=== PATIENT | female | born 1945 | race Caucasian/White ===

== ENCOUNTER 2017-04-11 06:57 | Day surgery (SDC) | payer MEDICARE ==
[2017-04-05 15:15] VITALS: BMI 47.2
[~2017-04-11 06:57] MED LIST: ALPRAZolam 0.25 MG TAB PO PRN; ALPRAZolam 0.5 MG TAB PO PRN; ASPIRIN 325 MG TAB PO STA; ATORVASTATIN 80 MG TAB PO STA; NITROGLYCERIN SL TABS 0.4 MG TAB SUBLINGUAL PRN; SODIUM CHLORIDE 0.9% 1,000 ML in EMPTY BAG 1 BAG IV ONE
[2017-04-11 07:49] LABS: Basophils % (A) 0 %; CH 29.6; CHCM 33.6; Eosinophils # (A) 0.1 k/uL (0-0.7); Eosinophils % (A) 1 %; HGB 12.4 gm/dL (11.4-16.0); Luc # (Auto) 0.21; Luc % (Auto) 2; Lymphocytes # (A) 2.9 k/uL (1.0-4.8); Lymphocytes % (A) 28 %; MCH 29.8 pg (25.0-35.0); MCHC 33.6 g/dL (31.0-37.0); MCV 88.6 fL (80.0-100.0); Mean Platelet Volume 8.3; Monocytes # (A) 0.6 k/uL (0-1.0); Monocytes % (A) 6 %; Neutrophils # (A) 6.8 k/uL (1.3-7.7); Neutrophils % (A) 63 %; RBC 4.18 m/uL (3.80-5.40); RDW 13.9 % (11.5-15.5); WBC 10.7 k/uL (3.8-10.6); WBC (Perox) 10.98
[2017-04-11 07:58] LABS: Anion Gap 9 mmol/L; Blood Urea Nitrogen 17 mg/dL (7-17); Calcium 9.3 mg/dL (8.4-10.2); Carbon Dioxide 26 mmol/L (22-30); Chloride 105 mmol/L (98-107); Glucose 151 mg/dL (74-99); Non-African American GFR(MDRD) >60 (>60 ml/min/1.73 sqM); Potassium 4.5 mmol/L (3.5-5.1); Sodium 140 mmol/L (137-145)
[2017-04-11] MEDS ORDERED: LIDOCAINE 2% INJ 20 MG/ML (20 ML MDV) ONE ×2 (09:02→09:46)
[2017-04-11] MEDS ORDERED: MIDAZOLAM 2 MG/2 ML VIAL ONE (09:02)
[2017-04-11] MEDS: MIDAZOLAM 2 MG/2 ML VIAL IVP ONE ×2 (09:34→09:39)
[2017-04-11] MEDS ORDERED: LIDOCAINE 2% INJ 20 MG/ML SQ ONE ×2 (09:38→09:48)
[2017-04-11] MEDS ORDERED: fentaNYL (PF) 50 MCG/ML 2 ML AMP ONE (09:41)
[2017-04-11] MEDS ORDERED: fentaNYL (PF) 50 MCG/ML 2 ML AMP IV ONE (09:42)
[2017-04-11] MEDS ORDERED: NITROGLYCERIN OINT 1 INCH/GM PACKET TOPICAL ONE ×2 (10:02→10:04)
[2017-04-11] MEDS ORDERED: HYDROmorphone 2 MG/ML 1 ML SYRINGE ONE (10:03)
[2017-04-11] MEDS ORDERED: HYDROmorphone 2 MG/ML 1 ML SYRINGE IVP ONE (10:04)
[2017-04-11] MEDS ORDERED: ENALAPRILAT 1.25 MG/ML 1 ML VIAL ONE (10:06)
[2017-04-11] MEDS ORDERED: ENALAPRILAT 1.25 MG/ML 1 ML VIAL IVP ONE (10:06)
[2017-04-11] MEDS ORDERED: RX INFO: IV CONTRAST WAS GIVEN 1 EACH MISC MISCELLANE PRN (10:08)
[2017-04-11] MEDS ORDERED: hydrALAZINE HCL 20 MG/ML 1 ML VIAL ONE (10:12)
[2017-04-11] MEDS: hydrALAZINE HCL 20 MG/ML 1 ML VIAL IVP ONE ×2 (10:13→10:25)
--- NOTE | 2017-04-11 10:46 | CC ---
DATE OF SERVICE: INDICATION: Unstable angina. After obtaining informed consent, we attempted cardiac catheterization via the right femoral artery initially. We could not obtain a vascular access. We tried a few times on the left side. Again we could not obtain a vascular access. I went on to get vascular access on the right side using modified Seldinger technique, however, after placing the sheath into the femoral artery and obtaining good flow, we were not able to advance even the Glidewire across the ( ). Due to this, I stopped the procedure, removed the femoral sheath and patient had been stable throughout. Just had a small hematoma over the right groin. Blood pressures have been normal. Distal pulses have been normal. The plan at this stage is to do a manual hemostasis and bring her back tomorrow and at that time do a radial cath on her.
[2017-04-11] MEDS: SODIUM CHLORIDE 0.9% 1,000 ML IV SCH (11:45)
[2017-04-11] MEDS ORDERED: NITROGLYCERIN SL TABS 0.4 MG TAB SUBLINGUAL PRN (12:14)
[2017-04-11] MEDS ORDERED: ACETAMINOPHEN TAB 325 MG TAB PO PRN (12:16)
[2017-04-11] MEDS ORDERED: SODIUM CHLORIDE 0.9% 1,000 ML in EMPTY BAG 1 BAG IV ONE (17:05)
[2017-04-11] MEDS ORDERED: ASPIRIN 325 MG TAB PO STA (17:05)
[2017-04-11] MEDS ORDERED: ATORVASTATIN 80 MG TAB PO STA (17:05)
[2017-04-11] MEDS ORDERED: ATENOLOL 25 MG TAB PO SCH (21:00)
[2017-04-12] MEDS: LOSARTAN 50 MG TAB PO SCH (08:42)
[2017-04-12] MEDS: ISOSORBIDE MONONITRATE ER 30 MG TAB.ER.24H PO SCH (08:42)
[2017-04-12] MEDS: PANTOPRAZOLE 40 MG TABLET PO SCH (08:42)
[2017-04-12] MEDS: LORATADINE 10 MG TAB PO SCH (08:43)
[2017-04-12] MEDS: amLODIPine 2.5 MG TAB PO SCH (08:43)
[2017-04-12] MEDS: ASPIRIN 81 MG CHEW PO SCH (08:43)
[2017-04-12] MEDS: SODIUM CHLORIDE 0.9% 1,000 ML IV SCH ×3 (12:00→19:11)
[2017-04-12] MEDS ORDERED: diphenhydrAMINE 50 MG/ML 1 ML VIAL IVP ONE (12:28)
[2017-04-12] MEDS ORDERED: MIDAZOLAM 2 MG/2 ML VIAL IV ONE (12:28)
[2017-04-12] MEDS ORDERED: LIDOCAINE 2% INJ 20 MG/ML SQ ONE (12:29)
[2017-04-12] MEDS: VERAPAMIL SYRINGE (5 MG/10 ML) INTRAARTER ONE ×2 (12:30→12:38)
[2017-04-12] MEDS ORDERED: MEPERIDINE 50 MG/ML SYRINGE IVP ONE (12:39)
[2017-04-12] MEDS ORDERED: HYDROmorphone 2 MG/ML 1 ML SYRINGE IV ONE (12:58)
[2017-04-12] MEDS ORDERED: BIVALIRUDIN BOLUS 250 MG/50 ML IV ONE (13:30)
[2017-04-12] MEDS ORDERED: BIVALIRUDIN 250 MG in SODIUM CHLORIDE 0.9% 50 ML IV ONE (13:31)
[2017-04-12] MEDS ORDERED: NITROGLYCERIN 1000MCG/10ML SYRINGE INTRACORON ONE (13:43)
[2017-04-12] MEDS ORDERED: IOHEXOL 350 MG/ML 125ML BOTTLE INJ ONE (13:44)
[2017-04-12] MEDS ORDERED: CLOPIDOGREL 75 MG TAB PO ONE (14:07)
[2017-04-12] MEDS ORDERED: RX INFO: IV CONTRAST WAS GIVEN 1 EACH MISC MISCELLANE PRN (14:11)
[2017-04-12] MEDS ORDERED: ATROPINE SULFATE 0.1 MG/ML 10ML SYRINGE IV PRN (14:11)
[2017-04-12] MEDS ORDERED: MAG HYDROX/AL HYDROX/SIMETH 30 ML CUP PO PRN (14:11)
[2017-04-12] MEDS ORDERED: ATORVASTATIN 80 MG TAB PO SCH (21:00)
[2017-04-12] MEDS ORDERED: ATENOLOL 25 MG TAB PO SCH (21:15)
[2017-04-13] MEDS: SODIUM CHLORIDE 0.9% 1,000 ML IV SCH ×2 (03:54)
[2017-04-13 06:50] LABS: Anion Gap 7 mmol/L; Blood Urea Nitrogen 17 mg/dL (7-17); Calcium 8.8 mg/dL (8.4-10.2); Carbon Dioxide 23 mmol/L (22-30); Chloride 108 mmol/L (98-107); Glucose 194 mg/dL (74-99); Non-African American GFR(MDRD) >60 (>60 ml/min/1.73 sqM); Potassium 3.9 mmol/L (3.5-5.1); Sodium 138 mmol/L (137-145)
[2017-04-13] MEDS: PANTOPRAZOLE 40 MG TABLET PO SCH (06:57)
[2017-04-13 07:59] LABS: Basophils # (A) 0.1 k/uL (0-0.2); Basophils % (A) 0 %; CH 29.6; CHCM 32.9; Eosinophils # (A) 0.1 k/uL (0-0.7); Eosinophils % (A) 1 %; HDW 2.66; HGB 10.9 gm/dL (11.4-16.0); Luc # (Auto) 0.12; Luc % (Auto) 1; Lymphocytes % (A) 18 %; MCH 29.8 pg (25.0-35.0); MCHC 32.9 g/dL (31.0-37.0); MCV 90.5 fL (80.0-100.0); Mean Platelet Volume 8.7; Monocytes # (A) 0.7 k/uL (0-1.0); Monocytes % (A) 6 %; Neutrophils # (A) 8.4 k/uL (1.3-7.7); Neutrophils % (A) 74 %; RBC 3.65 m/uL (3.80-5.40); RDW 14.1 % (11.5-15.5); WBC 11.4 k/uL (3.8-10.6); WBC (Perox) 10.46
[2017-04-13 08:53] VITALS: BP 139/74; PULSE 98; RESP 14; TEMP 97
[2017-04-13] MEDS: LOSARTAN 50 MG TAB PO SCH (08:54)
[2017-04-13] MEDS: amLODIPine 2.5 MG TAB PO SCH (08:54)
[2017-04-13] MEDS: ISOSORBIDE MONONITRATE ER 30 MG TAB.ER.24H PO SCH (08:54)
[2017-04-13] MEDS: LORATADINE 10 MG TAB PO SCH (08:54)
[2017-04-13] MEDS: ASPIRIN 81 MG CHEW PO SCH (08:54)
[2017-04-13] MEDS ORDERED: CLOPIDOGREL 75 MG TAB PO SCH (09:00)
--- NOTE | 2017-04-13 09:15 | DS ---
DATE OF ADMISSION: 04/11/2017 DATE OF DISCHARGE: 04/13/2017 FINAL DIAGNOSES: Unstable angina. PROCEDURES PERFORMED: 1. Left heart catheterization. 2. Angioplasty of [place] circumflex coronary artery. HOSPITAL COURSE: This is a 71-year-old lady with history of coronary artery disease, status post prior angioplasty, hypertension and dyslipidemia who presented to me with new onset progressively worsening shortness of breath. I brought her in on the 11 of April to perform cardiac catheterization. We were unable to obtain vascular access. After multiple attempts, we thought we will do a radial cath and patient was taken down for radial cath by Dr. Drea Chappell, but we could not get radial access on her. Hence, she completed a femoral angiogram and underwent angioplasty with stent placement of [place] circumflex coronary artery. She has done well since the angioplasty and is free of symptoms. At the time of my evaluation, she is comfortable at rest. Vital signs are stable. There is no jugular venous distention. Chest exam reveals good air entry bilaterally. Heart exam reveals first and second heart sounds. No gallop. No murmur, no rub. Abdomen is soft, nontender. Exam of extremities did not reveal any edema. The right groin shows mild ecchymosis. Left groin is normal. Foot pulses are intact. Discharge medications include: 1. Cozaar 50 mg q. daily. 2. Loratadine 10 q. daily. 3. Amlodipine 2.5 q. daily. 4. Prilosec 20 q. daily. 5. Sublingual nitroglycerin p.r.n. basis. 6. Imdur 30 q. daily. 7. Tenormin 25 q. daily. 8. Plavix 75 mg q. daily. 9. Lipitor 80 q. daily. Patient is allergic to LISINOPRIL. FOLLOWUP: Patient will be followed up in my office in a week's time. EKG today shows sinus rhythm without acute ST-T wave changes. Labs show a hemoglobin of 10.9. The initial hemoglobin on presentation was 12.4. Will follow the hemoglobin as outpatient. Creatinine is 0.7. Potassium is 3.9.
--- NOTE | 2017-04-13 10:28 | CC ---
DATE OF SERVICE: 04/12/2017 PROCEDURE: Left heart catheterization and coronary angiography. Performed by Dr. Drea Chappell. CLINICAL INFORMATION: Mrs. Ann Montana is a morbidly obese 71-year-old lady with a history of previous LAD stenting performed by me in 2013. Apparently, she came in with symptoms of unstable angina and Dr. Crespo attempted cardiac cath from the femoral approach bilaterally, but was unsuccessful because of tortuosity and difficulty to advance the guidewire. She was therefore advised to a radial cardiac cath. PROCEDURE NOTE: Under local anesthesia and strict aseptic precautions, a 6 Latvian introducer was placed in the right radial artery. I had a lot of difficulty advancing the catheter and wire beyond the upper arm area mainly because of extreme tortuosity of the radial artery as it came off from the brachial. I therefore abandoned the procedure and again attempted from the right femoral approach. I was able to place a 6 Latvian introducer after considerable effort and difficulty. There was a lot of tortuosity as well. Finally, a 6 Latvian introducer with a regular guidewire was placed after multiple attempts. Using a standard JL4 catheter, I performed selective coronary angiography of the right coronary artery. I had a lot of difficulty getting selective injection of the LAD since LAD and circumflex came off with a very short left main. However, I noted that the LAD had no more than 40% to 50% lesion in the midportion where previous stenting was performed, but there was a new lesion in the circumflex distally and therefore I went ahead with intervention of this vessel. LV pressures were obtained but LV gram was not performed. CARDIAC CATHETERIZATION FINDINGS: The left ventricular end diastolic pressure was about 20 mmHg and there was no gradient across the aortic valve. CORONARY ANGIOGRAPHY FINDINGS: RIGHT CORONARY ARTERY: Small nondominant, has diffuse disease with multiple areas of narrowing unchanged from the previous study from 2013. LEFT MAIN CORONARY ARTERY: This is a very short vessel, almost there are 2 separate origins for the LAD and circumflex but left main that is visualized, which is very small, does not seem to have any significant disease. LEFT ANTERIOR DESCENDING CORONARY ARTERY: This vessel was stented in the midportion. There is about a 40% to 45% narrowing with a brisk flow, mild diffuse disease is seen throughout. LEFT POSTERIOR CIRCUMFLEX CORONARY ARTERY: A very dominant vessel, gives off 2 obtuse marginal branches and distally before it bifurcates there is about an 80% stenosis noted eccentric in nature and this may be the culprit lesion. FINAL IMPRESSION: This patient has a patent LAD with a 45% mid lesion stenosis within the previously stented segment. Right coronary artery is nondominant, small diffusely diseased. Circumflex is a new stenosis of about 80% to 85% in the midportion before bifurcation, which I believe is the culprit lesion. RECOMMENDATION: I am recommending intervention of the circumflex vessel and went on to perform the procedure in the same setting.
--- NOTE | 2017-04-13 10:32 | PTCA ---
DATE OF SERVICE: 04/12/2017 PROCEDURE: PTCA and stenting of mid circumflex coronary artery. Performed by Dr. Drea Chappell. PROCEDURE NOTE: I used a 6 Hebrew JL4 guide catheter to cannulate the left coronary artery. I was able to get decent pictures of the LAD as well. Using a Whisper wire, I crossed the lesion circumflex and kept it in one of the branches. Using a 2.5 caliber, 12 mm Euphora balloon I predilated the lesion. I then deployed a 3.0 caliber, 12 mm long Xience stent. This was deployed at 13 atmospheres. Excellent angiographic result was achieved. Patient received Angiomax bolus and infusion. She also received 600 mg of Plavix. Excellent angiographic result without complication was achieved. I then used an Angio-Seal to secure hemostasis, but this was unsuccessful. Patient continued to ooze, therefore manual pressure was obtained with good hemostasis and FemoStop was applied and she was sent to the room in a stable condition with a decent distal pulse. The TR band was then applied to the right radial as per protocol with good hemostasis and good saturation in the fingers of the right hand was noted. Excellent angiographic result of circumflex was achieved. Results were discussed with the patient and family. Moderate conscious sedation was used for about one hour, 15 minutes for this patient using a combination of Versed, Benadryl and also Demerol. Patient's oxygen saturation was monitored closely. Excellent angiographic result without complication was achieved and I expect the patient was discharged in next 24 to 48 hours.
== END 2017-04-13 11:40 | disposition home or self-care (01) ==
LOC: CATHCVL 06:57 → 3OBS 10:18 → 6SEL 04-12 16:34 → CATHCVL 04-13 11:40
PROVIDERS: ATTEND Internal Medicine Cardiovascular Disease
DX: I25.110 Atherosclerotic heart disease of native coronary artery with unstable angina pectoris (principal); E78.2 Mixed hyperlipidemia; I10 Essential (primary) hypertension; E66.01 Morbid (severe) obesity due to excess calories; Z68.42 Body mass index [BMI] 45.0-49.9, adult; Z79.82 Long term (current) use of aspirin; Z79.899 Other long term (current) drug therapy; Z88.8 Allergy status to other drugs, medicaments and biological substances; Z95.5 Presence of coronary angioplasty implant and graft
CPT/HCPCS: 99152; 99153 ×5; 93458; 80048 ×2; 85025 ×2; C1769 ×5; C9600; C1760; C1887; C1894 ×2; C1725; C1874; J2001 ×2; J2250 ×2; J1170 ×2; J0360; J1200; J2175; J3010; J0583; J1644; Q9967

== ENCOUNTER → 2017-05-02 | Outpatient (CLI) | payer MEDICARE ==
--- NOTE | 2017-05-02 10:02 | MM ---
Reason for exam: follow-up at short interval from prior study. Last mammogram was performed 6 months ago. History: Patient is postmenopausal and history of other cancer. Physical Findings: Nurse Summary: 1 x 1cm nodule in the left breast at 12 o'clock and a 2 x 2cm nodule in the left breast at 9 o'clock (nurse ts). MG 3D Diag Mammo W/Cad LT CC, MLO, ML, CC with magnification, and ML with magnification view(s) were taken of the left breast. Prior study comparison: October 30, 2016, bilateral MG 3d screening mammo w/cad. October 29, 2015, bilateral MG screening mammo w CAD. There are scattered fibroglandular densities. Finding: There are stable round, grouped/clustered calcifications in the 2 o'clock upper outer quadrant, middle position of the left breast 8cm from the nipple. These results were verbally communicated with the patient and result sheet given to the patient on 05/02/17. ASSESSMENT: Benign, BI-RAD 2 RECOMMENDATION: Follow-up diagnostic mammogram of both breasts in 6 months.
--- NOTE | 2017-05-02 10:06 | USB ---
Reason for exam: follow-up at short interval from prior study. History: Patient is postmenopausal and history of other cancer. US Breast Limited LT Left breast ultrasound demonstrates a 2.2 x 0.8 x 2.4cm solid, isoechoigenic, lipoma at 12 o'clock. These results were verbally communicated with the patient and result sheet given to the patient on 05/02/17. ASSESSMENT: Benign, BI-RAD 2 RECOMMENDATION: Follow-up diagnostic mammogram of both breasts in 6 months.
== END | disposition home or self-care (01) ==
LOC: RADMAMWWP 08:34
PROVIDERS: ATTEND Family Medicine
DX: R92.8 Other abnormal and inconclusive findings on diagnostic imaging of breast (principal)
CPT/HCPCS: 76642; G0206; G0279

== ENCOUNTER 2017-05-12 18:24 | Emergency (ER) | payer MEDICARE ==
[2017-05-12] MEDS ORDERED: MORPHINE SULFATE 4 MG/ML SYRINGE IVP STA (19:02)
[2017-05-12 19:37] LABS: Basophils % (A) 0 %; CH 29.2; CHCM 34.3; Eosinophils # (A) 0.2 k/uL (0-0.7); Eosinophils % (A) 1 %; HCT 38.3 % (34.0-46.0); HGB 13.2 gm/dL (11.4-16.0); Luc # (Auto) 0.18; Luc % (Auto) 2; Lymphocytes # (A) 3.2 k/uL (1.0-4.8); Lymphocytes % (A) 28 %; MCH 29.5 pg (25.0-35.0); MCHC 34.5 g/dL (31.0-37.0); Monocytes # (A) 0.7 k/uL (0-1.0); Monocytes % (A) 6 %; Neutrophils # (A) 7.1 k/uL (1.3-7.7); Neutrophils % (A) 62 %; RBC 4.48 m/uL (3.80-5.40); RDW 13.6 % (11.5-15.5); WBC 11.5 k/uL (3.8-10.6); WBC (Perox) 11.06
[2017-05-12 19:38] VITALS: RESP 20
[2017-05-12 19:38] LABS: Appearance,Urine Clear (Clear); Bilirubin,Urine Negative (Negative); Glucose,Urine (UA) Negative (Negative); Ketones,Urine Negative (Negative); Leukocyte Esterase,Urine Negative (Negative); Nitrite,Urine Negative (Negative); PH, Urine 6.5 (5.0-8.0); Protein,Urine Negative (Negative); Specific Gravity,Urine 1.003 (1.001-1.035); UA Billing (MACRO vs. MICRO) CHEM; Urobilinogen,Urine <2.0 mg/dL (<2.0)
[2017-05-12 19:43] LABS: MCV 85.4 fL (80.0-100.0)
[2017-05-12 19:49] LABS: Anion Gap 13 mmol/L; Blood Urea Nitrogen 18 mg/dL (7-17); Calcium 9.5 mg/dL (8.4-10.2); Carbon Dioxide 23 mmol/L (22-30); Chloride 104 mmol/L (98-107); Glucose 127 mg/dL (74-99); Non-African American GFR(MDRD) >60 (>60 ml/min/1.73 sqM); Potassium 4.3 mmol/L (3.5-5.1); Sodium 140 mmol/L (137-145)
[2017-05-12 19:52] LABS: INR 0.9 (<1.1); Partial Thromboplastin Time 24.6 sec (22.0-30.0); Prothrombin Time 9.7 sec (9.0-12.0)
--- NOTE | 2017-05-12 20:29 | ED ---
General Adult HPI - General Chief complaint: Abdominal Pain Stated complaint: severe left side pain Time Seen by Provider: 05/12/17 18:49 Source: patient, RN notes reviewed Mode of arrival: wheelchair Limitations: no limitations - History of Present Illness Initial comments: 72-year-old female with past medical history of hypertension, hyperlipidemia, and COPD presents with left flank pain. This began gradually over the last 6 hours. She denies any trauma. Denies any twisting or pulling injury. Denies dysuria, denies fever or chills. Denies abdominal pain. Denies nausea vomiting or diarrhea. States her last bowel movement was today was normal. States the pain is coming and going and crampy in nature. Pain does not radiate. He denies chest pain or shortness of breath. Denies fever or chills. Patient denies any bowel or bladder incontinence. Denies any paresthesias. Denies any shooting pain to the lower extremities. - Related Data Home Medications Medication Instructions Recorded Confirmed amLODIPine [Norvasc] 2.5 mg PO DAILY 06/16/14 05/12/17 Omeprazole [PriLOSEC] 20 mg PO DAILY PRN 03/05/16 05/12/17 Isosorbide Mononitrate [Isosorbide 30 mg PO DAILY 04/05/17 05/12/17 Mononitrate ER] Loratadine 10 mg PO DAILY 04/11/17 05/12/17 Losartan [Cozaar] 50 mg PO DAILY 04/11/17 05/12/17 Previous Rx's Medication Instructions Recorded Aspirin EC [Ecotrin Low Dose] 81 mg PO DAILY #30 tablet. 06/18/14 Atenolol [Tenormin] 25 mg PO HS #30 tab 06/18/14 Nitroglycerin Sl Tabs [Nitrostat] 0.4 mg SUBLINGUAL Q5M PRN #30 tab 06/18/14 Clopidogrel [Plavix] 75 mg PO DAILY #90 tab 04/13/17 HYDROcodone/APAP 5-325MG [[place] 1 tab PO Q6HR PRN #12 tab 05/12/17 5-325] Allergies Allergy/AdvReac Type Severity Reaction Status Date / Time adhesive Allergy BLISTERS,PAPER Verified 05/12/17 19:16 TAPE OK diclofenac [From [place]] Allergy Dyspnea Verified 05/12/17 19:16 lisinopril Allergy Cough Verified 05/12/17 19:16 Review of Systems ROS Statement: Those systems with pertinent positive or pertinent negative responses have been documented in the HPI. ROS Other: All systems not noted in ROS Statement are negative. Constitutional: Denies: fever, chills Cardiovascular: Denies: chest pain Gastrointestinal: Denies: nausea, vomiting Genitourinary: Denies: urgency, dysuria, frequency Musculoskeletal: Reports: back pain Past Medical History Past Medical History: Coronary Artery Disease (CAD), GERD/Reflux, Hyperlipidemia , Hypertension, Osteoarthritis (OA) Additional Past Medical History / Comment(s): HIATAL HERNIA, History of Any Multi-Drug Resistant Organisms: None Reported Past Surgical History: Adenoidectomy, Appendectomy, Back Surgery, Heart Catheterization With Stent, Joint Replacement, Tonsillectomy, Tubal Ligation, Uterine Ablation Additional Past Surgical History / Comment(s): FUSION, JAYASHREE KNEE REPLACEMENTS, JAYASHREE CATARACTS, RT HIP REPLACEMENT, STENT X3 Past Anesthesia/Blood Transfusion Reactions: No Reported Reaction Date of Last Stent Placement:: 06/2014 Past Psychological History: No Psychological Hx Reported Smoking Status: Never smoker Past Alcohol Use History: None Reported Past Drug Use History: None Reported - Past Family History Sister(s) Family Medical History: Cancer Brother(s) Family Medical History: Cancer, Pulmonary Embolus General Exam Limitations: no limitations General appearance: alert, in no apparent distress Head exam: Present: atraumatic, normocephalic Eye exam: Present: normal appearance, PERRL ENT exam: Present: normal exam Neck exam: Present: normal inspection, full ROM. Absent: tenderness Respiratory exam: Present: normal lung sounds bilaterally. Absent: respiratory distress Cardiovascular Exam: Present: regular rate, normal rhythm GI/Abdominal exam: Present: soft. Absent: distended, tenderness Extremities exam: Present: full ROM. Absent: tenderness, pedal edema Back exam: Present: normal inspection, tenderness, CVA tenderness (L), other ( Tenderness to palpation in the left CVA, well-healed lumbar spinal surgery scar. ) Neurological exam: Present: alert, oriented X3, CN II-XII intact, normal gait, reflexes normal. Absent: motor sensory deficit Psychiatric exam: Present: normal affect, normal mood Course Vital Signs 05/12/17 05/12/17 18:28 19:38 Temperature 97.4 F L Pulse Rate 84 83 Respiratory 16 20 Rate Blood Pressure 149/70 150/63 O2 Sat by Pulse 95 96 Oximetry - Reevaluation(s) Reevaluation #1: 05/12/17 20:52 Patient reevaluated at 2030. She is feeling somewhat better. Medical Decision Making - Medical Decision Making 72-year-old female presenting with left flank pain which is nonradiating. Denies any associated symptoms. Denies any trauma or injury to this region. On examination there is tenderness in the left CVA region as well as lumbar paraspinal muscles. Exam is otherwise unremarkable. Laboratory studies are obtained including urinalysis which shows no signs of hemorrhage or infection. CBC and BMP are unremarkable. CT of the abdomen and pelvis is negative for any acute findings, no kidney stone, no signs of infection or inflammation, no acute bony abnormalities. Evaluation patient is feeling much better. Patient will be given pain medication and is encouraged to follow up with primary care physician in the next several days. Patient is agreeable with this plan. - Lab Data Result diagrams: 05/12/17 19:28 05/12/17 19:28 Lab Results 05/12/17 05/12/17 05/12/17 Range/Units 19:28 19:28 19:28 WBC 11.5 H (3.8-10.6) k/uL RBC 4.48 (3.80-5.40) m/uL Hgb 13.2 (11.4-16.0) gm/dL Hct 38.3 (34.0-46.0) % MCV 85.4 D (80.0-100.0) fL MCH 29.5 (25.0-35.0) pg MCHC 34.5 (31.0-37.0) g/dL RDW 13.6 (11.5-15.5) % Plt Count 240 (150-450) k/uL Neutrophils % 62 % Lymphocytes % 28 % Monocytes % 6 % Eosinophils % 1 % Basophils % 0 % Neutrophils # 7.1 (1.3-7.7) k/uL Lymphocytes # 3.2 (1.0-4.8) k/uL Monocytes # 0.7 (0-1.0) k/uL Eosinophils # 0.2 (0-0.7) k/uL Basophils # 0.0 (0-0.2) k/uL PT (9.0-12.0) sec INR (<1.1) APTT (22.0-30.0) sec Sodium 140 (137-145) mmol/L Potassium 4.3 (3.5-5.1) mmol/L Chloride 104 (98-107) mmol/L Carbon Dioxide 23 (22-30) mmol/L Anion Gap 13 mmol/L BUN 18 H (7-17) mg/dL Creatinine 0.80 (0.52-1.04) mg/dL Est GFR (MDRD) Af Amer >60 (>60 ml/min/1.73 sqM) Est GFR (MDRD) Non-Af >60 (>60 ml/min/1.73 sqM) Glucose 127 H (74-99) mg/dL Calcium 9.5 (8.4-10.2) mg/dL Urine Color Colorless Urine Appearance Clear (Clear) Urine pH 6.5 (5.0-8.0) Ur Specific Sparkman 1.003 (1.001-1.035) Urine Protein Negative (Negative) Urine Glucose (UA) Negative (Negative) Urine Ketones Negative (Negative) Urine Blood Negative (Negative) Urine Nitrite Negative (Negative) Urine Bilirubin Negative (Negative) Urine Urobilinogen <2.0 (<2.0) mg/dL Ur Leukocyte Esterase Negative (Negative) 05/12/17 Range/Units 19:28 WBC (3.8-10.6) k/uL RBC (3.80-5.40) m/uL Hgb (11.4-16.0) gm/dL Hct (34.0-46.0) % MCV (80.0-100.0) fL MCH (25.0-35.0) pg MCHC (31.0-37.0) g/dL RDW (11.5-15.5) % Plt Count (150-450) k/uL Neutrophils % % Lymphocytes % % Monocytes % % Eosinophils % % Basophils % % Neutrophils # (1.3-7.7) k/uL Lymphocytes # (1.0-4.8) k/uL Monocytes # (0-1.0) k/uL Eosinophils # (0-0.7) k/uL Basophils # (0-0.2) k/uL PT 9.7 (9.0-12.0) sec INR 0.9 (<1.1) APTT 24.6 (22.0-30.0) sec Sodium (137-145) mmol/L Potassium (3.5-5.1) mmol/L Chloride (98-107) mmol/L Carbon Dioxide (22-30) mmol/L Anion Gap mmol/L BUN (7-17) mg/dL Creatinine (0.52-1.04) mg/dL Est GFR (MDRD) Af Amer (>60 ml/min/1.73 sqM) Est GFR (MDRD) Non-Af (>60 ml/min/1.73 sqM) Glucose (74-99) mg/dL Calcium (8.4-10.2) mg/dL Urine Color Urine Appearance (Clear) Urine pH (5.0-8.0) Ur Specific Sparkman (1.001-1.035) Urine Protein (Negative) Urine Glucose (UA) (Negative) Urine Ketones (Negative) Urine Blood (Negative) Urine Nitrite (Negative) Urine Bilirubin (Negative) Urine Urobilinogen (<2.0) mg/dL Ur Leukocyte Esterase (Negative) Disposition Clinical Impression: Lumbar strain Disposition: HOME SELF-CARE Condition: Good Instructions: Low Back Strain (ED) Prescriptions: HYDROcodone/APAP 5-325MG [[place] 5-325] 1 tab PO Q6HR PRN #12 tab PRN Reason: Pain Referrals: Jt Tillman MD [Primary Care Provider] - 1-2 days
--- NOTE | 2017-05-12 20:47 | CT ---
EXAMINATION TYPE: CT abdomen pelvis wo con DATE OF EXAM: 05/12/2017 COMPARISON: NONE INDICATION: Left sided pain DLP: 1445.3 mGycm, Automated exposure control for dose reduction was used. CONTRAST: Study performed without Oral Contrast or IV contrast TECHNIQUE: Axial images were obtained from above the diaphragm to the pubic rami in the axial plane a t 5 mm thick sections. Reconstructed images are reviewed on the computer in the coronal plane. FINDINGS: Limited CT sections are obtained the lung bases. The lung bases are clear. Coronary artery calcific ation is present. CT ABDOMEN: Liver: Normal Spleen: Normal Pancreas: Normal Adrenal glands: The adrenal glands are normal. Gallbladder: Normal Kidneys: No masses are evident. No hydronephrosis is present. No cysts are present. No renal stone s are identified. Aorta: Vascular calcification is within the aorta. Inferior vena cava: Normal. CT PELVIS: Loops of bowel within the abdomen and pelvis are normal. Study is performed without oral contrast limiting the evaluation. Appendix: Normal as visualized. Urinary bladder: Normal. Genitourinary structures: Osseous structures: Uterus is normal. Adnexal regions are clear. IMPRESSIONS: 1. No acute changes CT abdomen and pelvis.
[2017-05-12 21:55] VITALS: BP 151/78; PULSE 78; TEMP 98.5
== END 2017-05-12 21:29 | disposition home or self-care (01) ==
LOC: EC 18:24
DX: S39.012A Strain of muscle, fascia and tendon of lower back, initial encounter (principal); I25.10 Atherosclerotic heart disease of native coronary artery without angina pectoris; K21.9 Gastro-esophageal reflux disease without esophagitis; I10 Essential (primary) hypertension; Z79.899 Other long term (current) drug therapy; Z91.048 Other nonmedicinal substance allergy status; Z88.8 Allergy status to other drugs, medicaments and biological substances; Z95.5 Presence of coronary angioplasty implant and graft; X58.XXXA Exposure to other specified factors, initial encounter
CPT/HCPCS: 36415; 80048; 85025; 85610; 85730; 81003; 74176; 99284; 96374; J2270

== ENCOUNTER 2017-08-07 09:02 | Day surgery (SDC) | payer MEDICARE ==
[2017-08-06 08:51] VITALS: BMI 47.0
[2017-08-07] MEDS ORDERED: LIDOCAINE 2% INJ 20 MG/ML (20 ML MDV) ONE (10:03)
[2017-08-07] MEDS ORDERED: MIDAZOLAM 2 MG/2 ML VIAL ONE (10:03)
[2017-08-07] MEDS ORDERED: HEPARIN SODIUM 1,000 UN/ML (10ML VL) ONE (10:04)
[2017-08-07] MEDS ORDERED: diphenhydrAMINE 50 MG/ML 1 ML VIAL ONE (10:04)
[2017-08-07] MEDS ORDERED: VERAPAMIL 2.5 MG/ML 2 ML AMP ONE (10:04)
[2017-08-07] MEDS ORDERED: IV FLUID CONTINUATION 950 ML IV ONE (10:23)
[2017-08-07] MEDS: MIDAZOLAM 2 MG/2 ML VIAL IVP ONE ×2 (10:29→10:59)
[2017-08-07] MEDS ORDERED: diphenhydrAMINE 50 MG/ML 1 ML VIAL IVP ONE (10:29)
[2017-08-07] MEDS ORDERED: LIDOCAINE 2% INJ 20 MG/ML SQ ONE (10:31)
[2017-08-07] MEDS ORDERED: HEPARIN SODIUM 1,000 UN/ML (10ML VL) IV ONE (10:40)
[2017-08-07] MEDS: VERAPAMIL SYRINGE (5 MG/10 ML) INTRAARTER ONE ×2 (10:40→11:34)
[2017-08-07] MEDS ORDERED: HYDROmorphone 2 MG/ML 1 ML SYRINGE ONE (10:44)
[2017-08-07] MEDS ORDERED: HYDROmorphone 2 MG/ML 1 ML SYRINGE IVP ONE (10:46)
[2017-08-07 10:52] LABS: Basophils # (A) 0.1 k/uL (0-0.2); Basophils % (A) 1 %; CH 29.4; CHCM 33.9; Eosinophils # (A) 0.1 k/uL (0-0.7); Eosinophils % (A) 1 %; HCT 40.5 % (34.0-46.0); HDW 2.47; HGB 13.2 gm/dL (11.4-16.0); Luc # (Auto) 0.12; Luc % (Auto) 1; Lymphocytes # (A) 2.9 k/uL (1.0-4.8); Lymphocytes % (A) 30 %; MCH 28.3 pg (25.0-35.0); MCHC 32.6 g/dL (31.0-37.0); Mean Platelet Volume 8.5; Monocytes # (A) 0.7 k/uL (0-1.0); Monocytes % (A) 7 %; Neutrophils % (A) 61 %; RBC 4.66 m/uL (3.80-5.40); RDW 15.2 % (11.5-15.5); WBC 9.9 k/uL (3.8-10.6); WBC (Perox) 10.42
[2017-08-07] MEDS ORDERED: BIVALIRUDIN 250 MG in SODIUM CHLORIDE 0.9% 50 ML IV ONE (10:59)
[2017-08-07] MEDS ORDERED: BIVALIRUDIN BOLUS 250 MG/50 ML IV ONE (10:59)
[2017-08-07] MEDS: NITROGLYCERIN 1000MCG/10ML SYRINGE INTRACORON ONE ×2 (11:14→11:25)
[2017-08-07] MEDS ORDERED: CLOPIDOGREL 75 MG TAB ONE (11:35)
[2017-08-07] MEDS ORDERED: CLOPIDOGREL 75 MG TAB PO ONE (11:39)
[2017-08-07] MEDS ORDERED: ATROPINE SULFATE 0.1 MG/ML 10ML SYRINGE IV PRN (11:42)
[2017-08-07] MEDS ORDERED: ZOLPIDEM 5 MG TAB PO PRN (11:42)
[2017-08-07] MEDS ORDERED: NITROGLYCERIN SL TABS 0.4 MG TAB SUBLINGUAL PRN ×2 (11:42→15:52)
[2017-08-07] MEDS ORDERED: RX INFO: IV CONTRAST WAS GIVEN 1 EACH MISC MISCELLANE PRN (11:42)
[2017-08-07] MEDS ORDERED: MAG HYDROX/AL HYDROX/SIMETH 30 ML CUP PO PRN (11:42)
--- NOTE | 2017-08-07 12:56 | CC ---
CARDIAC CATHETERIZATION REPORT DATE OF SERVICE: 08/07/2017. PROCEDURE PERFORMED BY: Dr. Steven Chappell. MODERATE CONSCIOUS SEDATION TIME: 1 hour and 6 minutes. CLINICAL INFORMATION: Mrs. Montana is a 72-year-old obese lady with hypertension, hyperlipidemia, who suffered from an anterior TN and underwent stenting of mid LAD performed by me in 2013. In April of this year, the LAD was patent with moderate disease, but had a new lesion in the circumflex. Circumflex lesion was stented and she has been having symptoms of angina with a positive stress test in the LAD distribution and was brought in for the procedure electively. She sees Dr. Crespo in the outpatient setting, but she was advised to have a radial approach intervention. PROCEDURE: Under local anesthesia and strict aseptic precautions, a 6-Kosovan introducer was placed in the left radial artery. I used a Lynda catheter to gain access into the ascending aorta because of some tortuosity. Standard left Lawrence catheter was used to perform selective coronary angiography and I noted that there was a widely patent circumflex at the site of previous stenting, but LAD in the midportion had 90% lesion which was progression of disease and was advised intervention in the same setting. Selective coronary angiography of the nondominant RCA was not performed. Subselective injections revealed that the vessel was patent. LV pressures were obtained, but LV-gram was not performed. CARDIAC CATHETERIZATION FINDINGS: The left ventricular end-diastolic pressure was 12 mmHg and there was no gradient across the aortic valve. CORONARY ANGIOGRAPHY FINDINGS: Right coronary artery subselective injections revealed the vessel was patent and this was nondominant, but selective injection was not performed. Left main coronary artery: This is a very short vessel that immediately bifurcates into LAD and circumflex. The origin seems to be almost [id number]. Left posterior circumflex coronary artery: This is a dominant vessel. Distally at the site of stenting it is widely patent. Before bifurcation, it gives off 2 obtuse marginal branches and distal posterolateral branch as well as a PDA branch are widely patent and no significant disease is noted. Left anterior descending coronary artery: Good caliber vessel extends along the antral wall. There is a new area of 80% to 90% stenosis in the midportion within the previously stented segment. LAD was stented with a 2.5 stent in the midportion and 2.25 in the distal portion. This area has a re-stenosis of about 80% to 90%. The proximal 3.0 stent is patent. Distally, this is a large vessel that runs all the way into the distal 1/4. Also there is an area of narrowing noted which is unchanged from before. The patient was advised intervention of LAD that was performed expeditiously. Left ventriculogram was not performed. FINAL IMPRESSION: This patient has a widely patent circumflex at the site of previous stenting. Right coronary artery is nondominant. Left anterior descending has a new in-stent restenosis within the mid portion of about 80% to 90%. Distal left anterior descending also has a significant lesion, but the amount of myocardium beyond the lesion is rather small. RECOMMENDATION: I recommended intervention of the LAD and proceeded to perform this in the same setting. MMODL / IJN: [id number] /
--- NOTE | 2017-08-07 13:09 | LTR ---
Date: Dear Dr. Tillman: Thank you for the opportunity to participate in the care of Mrs. Montana. I am pleased to report to you that this lady had an excellent angiographic result and the distal LAD still has some lesion, but for this, no intervention is necessary. The stented segment in the mid portion is widely patent with a brisk flow. The previously dilated circumflex in April of this year is also widely patent. RCA is nondominant. Thank you for your referral. Please call for questions. With kindest regards. Sincerely, MMAMARILISL / IJN: [id number] /
--- NOTE | 2017-08-07 13:12 | PTCA ---
PERCUTANEOUSTRANS CORORONARY ANGIOGRAPHY DATE OF PROCEDURE: 08/07/2017. PERFORMED BY: Drea Chappell. CLINICAL INFORMATION: Ms. Gonzalez was brought in electively for a cardiac cath because of a positive stress test with LAD ischemia. Cath revealed that the circumflex stent was patent, LAD had a re-stenosis. This was addressed by intervention in the same setting. Procedure was performed from the left radial approach. PROCEDURE NOTE: A 3.5 curved left Lawrence guide catheter was used to cannulate the left coronary artery. A Whisper wire was used to cross the lesion, where it was kept distally. A 2.5 caliber 15-mm long NC Trek balloon was used to pre-dilate the lesion. I then deployed a 2.75 caliber 12-mm Promus stent in the mid portion with excellent results. Distally, there was some haziness. I addressed this with a 2.25 caliber 8-mm long Promus stent. In the proximal to the initial Promus stent was also an area of narrowing and this was addressed with a 3.2 caliber 8-mm long Promus stent. The new stents were placed within the previously stented segment except the proximal stent, which was placed in a new area. The most proximal stent was a 3.2 caliber Promus, then there was a 2.75, 12-mm long Promus stent distally with a 2.25 caliber 8-mm Promus stent. Excellent angiographic results was achieved without complication. The patient did not have any significant symptoms with inflation or EKG changes. She received additional Plavix of 150 mg and she was already on Plavix before. The sheath was taken out and a TR band applied as per protocol and the patient was sent to the room in stable condition. Excellent angiographic results was achieved without complication. She will be discharged tomorrow if she remains stable. She will continue aspirin and Plavix without interrupted. Results were discussed with the patient and family. MMODL / IJN: [id number] /
[2017-08-07] MEDS ORDERED: HYDROcodone/APAP 5-325MG 1 EACH TAB PO PRN (15:52)
[2017-08-07] MEDS: GEMFIBROZIL 600 MG TAB PO SCH (17:32)
[2017-08-07] MEDS: SODIUM CHLORIDE 0.9% 1,000 ML IV SCH (17:33)
[2017-08-07] MEDS: FAMOTIDINE 20 MG TAB PO SCH (21:28)
[2017-08-08] MEDS: SODIUM CHLORIDE 0.9% 1,000 ML IV SCH (01:21)
[2017-08-08 06:11] LABS: Basophils % (A) 0 %; CH 29.4; CHCM 33.7; Eosinophils # (A) 0.1 k/uL (0-0.7); Eosinophils % (A) 1 %; HCT 38.7 % (34.0-46.0); HDW 2.42; HGB 12.5 gm/dL (11.4-16.0); Luc % (Auto) 1; Lymphocytes # (A) 2.1 k/uL (1.0-4.8); Lymphocytes % (A) 25 %; MCH 28.3 pg (25.0-35.0); MCHC 32.3 g/dL (31.0-37.0); MCV 87.7 fL (80.0-100.0); Mean Platelet Volume 8.1; Monocytes # (A) 0.6 k/uL (0-1.0); Monocytes % (A) 7 %; Neutrophils # (A) 5.4 k/uL (1.3-7.7); Neutrophils % (A) 65 %; RBC 4.41 m/uL (3.80-5.40); RDW 15.3 % (11.5-15.5); WBC 8.3 k/uL (3.8-10.6); WBC (Perox) 8.23
[2017-08-08 06:28] LABS: Anion Gap 9 mmol/L; Blood Urea Nitrogen 18 mg/dL (7-17); Calcium 9.2 mg/dL (8.4-10.2); Carbon Dioxide 23 mmol/L (22-30); Chloride 108 mmol/L (98-107); Glucose 124 mg/dL (74-99); Non-African American GFR(MDRD) >60 (>60 ml/min/1.73 sqM); Potassium 4.4 mmol/L (3.5-5.1); Sodium 140 mmol/L (137-145)
[2017-08-08] MEDS: GEMFIBROZIL 600 MG TAB PO SCH (06:32)
[2017-08-08] MEDS: FAMOTIDINE 20 MG TAB PO SCH (08:09)
[2017-08-08 08:17] VITALS: BP 143/68; PULSE 90; RESP 18; TEMP 97.3
[2017-08-08] MEDS ORDERED: ISOSORBIDE MONONITRATE ER 30 MG TAB.ER.24H PO SCH (09:00)
[2017-08-08] MEDS ORDERED: LORATADINE 10 MG TAB PO SCH (09:00)
[2017-08-08] MEDS ORDERED: ASPIRIN 81 MG PO SCH (09:00)
[2017-08-08] MEDS ORDERED: CLOPIDOGREL 75 MG TAB PO SCH (09:00)
[2017-08-08] MEDS ORDERED: ATENOLOL 25 MG TAB PO SCH (09:00)
[2017-08-08] MEDS ORDERED: LOSARTAN 50 MG TAB PO SCH (09:00)
--- NOTE | 2017-08-08 11:18 | DS ---
DISCHARGE SUMMARY DATE OF ADMISSION: 08/07/2017 DATE OF DISCHARGE: 08/08/2017 DIAGNOSIS: Unstable angina. PROCEDURES PERFORMED: PTCA and stenting of the mid LAD performed with 3 drug-eluting stents. I also checked the patency of circumflex that was stented 3-1/2 months ago. Mrs. Montana was brought in for elective coronary angiography and PTCA of LAD if indicated given the abnormal stress test in the LAD distribution. I performed the procedure from the left radial approach. The procedure was performed uneventfully. The circumflex that was stented 3 months ago was widely patent. I performed stenting of the mid LAD with 3 drug-eluting stents. Excellent angiographic result without complication was achieved. Her postprocedure course was unremarkable. This morning, she is doing well, asymptomatic, ambulating the hallways without symptoms. Blood pressure is 128/70, pulse rate is about 84 per minute. The EKG and labs are unremarkable. There was no JVD or carotid bruit. S1, S2 heard normally. Short systolic murmur was noted. Lungs are clear. Abdomen and lower extremity exam was unchanged. Left radial pulse was good and the site was clean and dry. Patient was given discharge instructions regarding activity, diet and medications. She will be on aspirin, Plavix and statin, Lipitor 40 mg daily, and she will be discharged today and will follow up with Dr. Crespo in about 1 week. All discharge instructions were given. MMODL / IJN: [id number] /
[2017-08-08] MEDS ORDERED: ATORVASTATIN 40 MG TAB PO SCH (21:00)
== END 2017-08-08 10:33 | disposition home or self-care (01) ==
LOC: CATHCVL 09:02 → 6SEL 11:35 → CATHCVL 08-08 10:33
PROVIDERS: ATTEND Internal Medicine Interventional Cardiology
DX: I25.110 Atherosclerotic heart disease of native coronary artery with unstable angina pectoris (principal); T82.855A Stenosis of coronary artery stent, initial encounter; I10 Essential (primary) hypertension; E78.2 Mixed hyperlipidemia; I77.1 Stricture of artery; Z68.42 Body mass index [BMI] 45.0-49.9, adult; E66.9 Obesity, unspecified; Z79.82 Long term (current) use of aspirin; Z79.899 Other long term (current) drug therapy; Z79.02 Long term (current) use of antithrombotics/antiplatelets; Z88.8 Allergy status to other drugs, medicaments and biological substances; I25.2 Old myocardial infarction; Z95.5 Presence of coronary angioplasty implant and graft; Y71.2 Prosthetic and other implants, materials and accessory cardiovascular devices associated with adverse incidents
CPT/HCPCS: 93458; 80048; 85025 ×2; 99152; 99153 ×3; C9600; C1769 ×2; C1887; C1725; C1894; C1874; J2001; J2250; J1170; J1200; J1644; J0583

== ENCOUNTER → 2018-04-23 | Outpatient (CLI) | payer MEDICARE ==
--- NOTE | 2018-04-23 09:32 | CT ---
EXAMINATION TYPE: CT lumbar spine wo con DATE OF EXAM: 04/23/2018 9:11 AM COMPARISON: NONE HISTORY: Bilateral lower ext numbness, lumbago CT DLP: 2359.3 mGycm Automated exposure control for dose reduction was used. TECHNIQUE: Unenhanced CT of the lumbar spine was performed. Bone and soft tissue window settings are submitted as well as coronal and sagittal reconstructions. FINDINGS: There is surgical fusion of the L4-L5 level with intervertebral disc age and formed posteri or osteophyte at the left lateral margin. There is very mild grade 1 anterolisthesis of L4 on L5, aga in surgically fixated. Remainder of the lumbar spine vertebral bodies maintain normal alignment and v ertebral body height. Multilevel anterior osteophytes and facet arthropathy with intervertebral disc space narrowing are noted. Moderate atherosclerosis is seen of the visualized abdominal aorta. Overal l there is mild paraspinal muscular atrophy. L1-L2: Small broad-based disc bulge without neural foraminal narrowing or spinal canal stenosis. L2-L3: There is a broad-based disc bulge, facet arthropathy and ligamentum flavum buckling creating m ild bilateral neural foraminal narrowing and mild spinal canal stenosis. L3-L4: There is a broad-based disc bulge heterotopic ossification and facet arthropathy resulting in moderate bilateral neural foraminal narrowing in mild spinal canal stenosis. L4-L5: There is resection of the posterior elements at this level. Intervertebral disc cages seen. Po sterior osteophyte in the central left lateral ventral subarachnoid space effaces the ventral thecal sac, however with resection of the posterior elements no significant spinal canal stenosis is thought to be present. There is narrowing of the left lateral recess, however no neural foraminal narrowing is seen. L5-S1: There is a broad-based disc bulge, left laminectomy defect, heterotopic ossification and facet arthropathy without spinal canal stenosis or neural foraminal narrowing. IMPRESSION: 1. Surgical fixation at L4-L5 of the grade 1 anterolisthesis with intervertebral disc age and central /left lateral posterior osteophyte creating narrowing of the left lateral recess without neural dru inal narrowing or spinal canal stenosis. 2. Multilevel moderate degenerative disc disease resulting in variable degrees of neural foraminal st enosis as described above and mild spinal canal stenosis from L2 through L4.
== END ==
LOC: RADCTMAIN 08:45
PROVIDERS: ATTEND Psychiatry & Neurology Neurology
DX: M43.16 Spondylolisthesis, lumbar region (principal); M25.78 Osteophyte, vertebrae; M48.061 Spinal stenosis, lumbar region without neurogenic claudication; M51.26 Other intervertebral disc displacement, lumbar region; M51.27 Other intervertebral disc displacement, lumbosacral region
CPT/HCPCS: 72131

== ENCOUNTER 2018-07-06 15:05 | Emergency (ER) | payer MEDICARE ==
[2018-07-06 15:11] VITALS: RESP 18
[2018-07-06] MEDS ORDERED: TOPICAL SKIN ADHESIVE 1 EACH AMP TOPICAL ONE (15:20)
--- NOTE | 2018-07-06 15:26 | ED ---
Wound/Laceration HPI - General Chief Complaint: Wound/Laceration Stated Complaint: finger lacteration Time Seen by Provider: 07/06/18 15:12 Source: patient, RN notes reviewed, old records reviewed Mode of arrival: ambulatory Limitations: no limitations - History of Present Illness Initial Comments: This Patient is a 73-year-old female presents emergency department today with a laceration over the right ring finger. Patient reports that she was attempting to open up her safe when she caught the edge of her finger on the lock of the safe. Patient states that the laceration is involvement nail. She reports she is on blood thinners it did not stop bleeding. Patient states that she has had no other symptoms at this time. Her tetanus is up-to-date. Patient denies any recent fever, chills, shortness of breath, chest pain, back pain, abdominal pain , nausea vomiting, numbness or tingling, dysuria or hematuria, constipation or diarrhea, headaches or visual changes, or any other current symptoms - Related Data Home Medications Medication Instructions Recorded Confirmed Isosorbide Mononitrate [Isosorbide 30 mg PO DAILY 04/05/17 07/06/18 Mononitrate ER] Loratadine 10 mg PO DAILY 04/11/17 07/06/18 Losartan [Cozaar] 50 mg PO DAILY 04/11/17 07/06/18 Ranitidine HCl [Zantac] 300 mg PO BID 08/06/17 07/06/18 Previous Rx's Medication Instructions Recorded Aspirin EC [Ecotrin Low Dose] 81 mg PO DAILY #30 tablet. 06/18/14 Atenolol [Tenormin] 25 mg PO HS #30 tab 06/18/14 Nitroglycerin Sl Tabs [Nitrostat] 0.4 mg SUBLINGUAL Q5M PRN #30 tab 06/18/14 Clopidogrel [Plavix] 75 mg PO DAILY #90 tab 04/13/17 Atorvastatin [Lipitor] 40 mg PO HS #30 tab 08/08/17 Allergies Allergy/AdvReac Type Severity Reaction Status Date / Time adhesive Allergy BLISTERS,PAPER Verified 07/06/18 15:11 TAPE OK diclofenac [From Pennsaid] Allergy Dyspnea Verified 07/06/18 15:11 lisinopril Allergy Cough Verified 07/06/18 15:11 Review of Systems ROS Statement: Those systems with pertinent positive or pertinent negative responses have been documented in the HPI. ROS Other: All systems not noted in ROS Statement are negative. Past Medical History Past Medical History: Coronary Artery Disease (CAD), GERD/Reflux, Hyperlipidemia , Hypertension, Osteoarthritis (OA) Additional Past Medical History / Comment(s): HIATAL HERNIA, History of Any Multi-Drug Resistant Organisms: None Reported Past Surgical History: Adenoidectomy, Appendectomy, Back Surgery, Heart Catheterization With Stent, Joint Replacement, Tonsillectomy, Tubal Ligation, Uterine Ablation Additional Past Surgical History / Comment(s): FUSION, JAYASHREE KNEE REPLACEMENTS, JAYASHREE CATARACTS, RT HIP REPLACEMENT, STENT X4 Past Anesthesia/Blood Transfusion Reactions: No Reported Reaction Date of Last Stent Placement:: 07/2017 Past Psychological History: No Psychological Hx Reported Smoking Status: Never smoker Past Alcohol Use History: None Reported Past Drug Use History: None Reported - Past Family History Sister(s) Family Medical History: Cancer Additional Family Medical History / Comment(s): vaginal cancer Brother(s) Family Medical History: Cancer, Pulmonary Embolus General Exam - General Exam Comments Initial Comments: This patient's a 73-year-old female. Alert and oriented. No acute distress. Limitations: no limitations General appearance: alert Head exam: Present: atraumatic, normocephalic, normal inspection Eye exam: Present: normal appearance ENT exam: Present: normal exam, mucous membranes moist Neck exam: Present: normal inspection. Absent: tenderness, meningismus, lymphadenopathy Respiratory exam: Present: normal lung sounds bilaterally. Absent: respiratory distress, wheezes, rales, rhonchi, stridor Cardiovascular Exam: Present: regular rate, normal rhythm, normal heart sounds. Absent: systolic murmur, diastolic murmur, rubs, gallop, clicks GI/Abdominal exam: Present: soft, normal bowel sounds. Absent: distended, tenderness, guarding, rebound, rigid Extremities exam: Present: normal inspection Right Elbow exam: Present: normal inspection, full ROM Forearm Wrist exam: Present: normal inspection, full ROM Hand Wrist exam: Present: normal inspection, full ROM, laceration (Patient has a less than 1 cm laceration over the medial aspect of the right distal index finger. Laceration is near the nail bed but does not involve the nail.) Neuro motor exam: Present: wrist extension intact, thumb opposition intact, thumb IP flexion intact, thumb adduction intact, fingers 2-5 abduction intact Neurosensory exam: Present: ulnar nerve intact Vascular: Present: normal capillary refill Back exam: Present: normal inspection Neurological exam: Present: alert, oriented X3, CN II-XII intact Psychiatric exam: Present: normal affect, normal mood Skin exam: Present: warm, dry, intact, normal color. Absent: rash Course Vital Signs 07/06/18 15:09 Temperature 98.2 F Pulse Rate 86 Respiratory 18 Rate Blood Pressure 180/80 O2 Sat by Pulse 96 Oximetry Procedures - Laceration Laceration #1 Site: hand (Right ring finger ) Size (cm): 0 (less than 1cm) Description: linear Anesthesia Technique: local infiltration Pre-repair: wound explored, irrigated extensively Type of Sutures: other (exofen(dermabond)) Patient Tolerated Procedure: well, no complications Medical Decision Making - Medical Decision Making 73-year-old female presents today with a laceration of her right distal ring finger. Patient has a less than 1 cm laceration near the nail. The nail does not appear to be involved. She is concerned she is on blood thinners it did not stop bleeding. Patient has had no other symptoms at this time. Patient's wound was cleaned and closed with excellent then. Patient advised to apply pressure dressing. Patient is history plan will comply. Return parameters were discussed. Disposition Clinical Impression: Finger laceration Disposition: HOME SELF-CARE Condition: Good Instructions: Skin Adhesive Care (ED) Additional Instructions: Allow skin glue to call him off on its own. Monitor for any signs of infection including redness swelling or drainage. Wear a bandage over the finger. Is patient prescribed a controlled substance at d/c from ED?: No Referrals: Fawad Ervin MD [Primary Care Provider] - 1-2 days Time of Disposition: 15:23
[2018-07-06 15:53] VITALS: BP 177/70; PULSE 85; TEMP 98.6
== END 2018-07-06 15:52 | disposition home or self-care (01) ==
LOC: EC 15:05
DX: S61.214A Laceration without foreign body of right ring finger without damage to nail, initial encounter (principal); K21.9 Gastro-esophageal reflux disease without esophagitis; I10 Essential (primary) hypertension; M19.90 Unspecified osteoarthritis, unspecified site; Z95.5 Presence of coronary angioplasty implant and graft; Z96.653 Presence of artificial knee joint, bilateral; Z96.641 Presence of right artificial hip joint; Z79.899 Other long term (current) drug therapy; Z91.048 Other nonmedicinal substance allergy status; Z88.6 Allergy status to analgesic agent; Z88.8 Allergy status to other drugs, medicaments and biological substances; W26.8XXA Contact with other sharp object(s), not elsewhere classified, initial encounter; Y93.89 Activity, other specified
CPT/HCPCS: 12001; 99283

== ENCOUNTER 2018-09-01 13:22 | Emergency (ER) | payer MEDICARE ==
[2018-09-01 13:30] VITALS: RESP 18; TEMP 98
[2018-09-01] MEDS ORDERED: SODIUM CHLORIDE 0.9% 500 ML 500 ML IV STA (13:45)
--- NOTE | 2018-09-01 13:47 | ED ---
General Adult HPI - General Source: patient, RN notes reviewed Mode of arrival: wheelchair Limitations: no limitations <Delano Carpetner - Last Filed: 09/01/18 15:48> <Sami Tolliver - Last Filed: 09/01/18 15:55> - General Chief complaint: Urogenital Stated complaint: Left side pain Time Seen by Provider: 09/01/18 13:32 - History of Present Illness Initial comments: 73-year-old female presents emergency Department chief complaint of left flank pain. Patient states started last couple days and she's noticed some urinary frequency. She denies any fever, chills, night sweats, nausea vomiting or diarrhea. Patient states it does hurt when she twists and bends when the pain is there she states the pain is intermittent. She states she had she feels improved at this time. She states that she's never had any like this in the past. She does not request any pain meds currently. Patient has no chest pain or shortness of breath. (Delano Carpenter) - Related Data Home Medications Medication Instructions Recorded Confirmed Isosorbide Mononitrate [Isosorbide 30 mg PO DAILY 04/05/17 07/06/18 Mononitrate ER] Loratadine 10 mg PO DAILY 04/11/17 07/06/18 Losartan [Cozaar] 50 mg PO DAILY 04/11/17 07/06/18 Ranitidine HCl [Zantac] 300 mg PO BID 08/06/17 07/06/18 Previous Rx's Medication Instructions Recorded Aspirin EC [Ecotrin Low Dose] 81 mg PO DAILY #30 tablet. 06/18/14 Atenolol [Tenormin] 25 mg PO HS #30 tab 06/18/14 Nitroglycerin Sl Tabs [Nitrostat] 0.4 mg SUBLINGUAL Q5M PRN #30 tab 06/18/14 Clopidogrel [Plavix] 75 mg PO DAILY #90 tab 04/13/17 Atorvastatin [Lipitor] 40 mg PO HS #30 tab 08/08/17 Ciprofloxacin HCl [Cipro] 500 mg PO Q12HR #14 tablet 09/01/18 metroNIDAZOLE [Flagyl] 500 mg PO TID #24 tab 09/01/18 Allergies Allergy/AdvReac Type Severity Reaction Status Date / Time adhesive Allergy BLISTERS,PAPER Verified 09/01/18 13:30 TAPE OK diclofenac [From Pennsaid] Allergy Dyspnea Verified 09/01/18 13:30 lisinopril Allergy Cough Verified 09/01/18 13:30 Review of Systems ROS Other: All systems not noted in ROS Statement are negative. <Delano Carpenter - Last Filed: 09/01/18 15:48> ROS Other: All systems not noted in ROS Statement are negative. <Sami Tolliver - Last Filed: 09/01/18 15:55> ROS Statement: Those systems with pertinent positive or pertinent negative responses have been documented in the HPI. Past Medical History Past Medical History: Coronary Artery Disease (CAD), GERD/Reflux, Hyperlipidemia , Hypertension, Osteoarthritis (OA) Additional Past Medical History / Comment(s): HIATAL HERNIA, History of Any Multi-Drug Resistant Organisms: None Reported Past Surgical History: Adenoidectomy, Appendectomy, Back Surgery, Heart Catheterization With Stent, Joint Replacement, Tonsillectomy, Tubal Ligation, Uterine Ablation Additional Past Surgical History / Comment(s): FUSION, JAYASHREE KNEE REPLACEMENTS, JAYASHREE CATARACTS, RT HIP REPLACEMENT, STENT X4 Past Anesthesia/Blood Transfusion Reactions: No Reported Reaction Date of Last Stent Placement:: 07/2017 Past Psychological History: No Psychological Hx Reported Smoking Status: Never smoker Past Alcohol Use History: None Reported Past Drug Use History: None Reported - Past Family History Sister(s) Family Medical History: Cancer Additional Family Medical History / Comment(s): vaginal cancer Brother(s) Family Medical History: Cancer, Pulmonary Embolus <Delano Carpenter - Last Filed: 09/01/18 15:48> General Exam Limitations: no limitations General appearance: alert, in no apparent distress Head exam: Present: atraumatic, normocephalic, normal inspection Respiratory exam: Present: normal lung sounds bilaterally. Absent: respiratory distress, wheezes, rales, rhonchi, stridor Cardiovascular Exam: Present: regular rate, normal rhythm, normal heart sounds. Absent: systolic murmur, diastolic murmur, rubs, gallop, clicks GI/Abdominal exam: Present: soft, tenderness (mild suprapubic and left lower quadrant), normal bowel sounds. Absent: distended, guarding, rebound, rigid Back exam: Present: CVA tenderness (L). Absent: CVA tenderness (R) Skin exam: Present: warm, dry, intact, normal color. Absent: rash <Delano Carpenter - Last Filed: 09/01/18 15:48> Course <Delano Carpenter - Last Filed: 09/01/18 15:48> <Sami Tolliver - Last Filed: 09/01/18 15:55> Vital Signs 09/01/18 13:27 Temperature 98 F Pulse Rate 90 Respiratory 18 Rate Blood Pressure 164/72 O2 Sat by Pulse 95 Oximetry - Reevaluation(s) Reevaluation #1: 09/01/18 15:55 PA supervision: I personally do a [id number] evaluation the patient presenting with complaints of left-sided CVA flank pain. He is nontender to palpation no evidence of any rash. Labs and CAT scan were reviewed no evidence of acute processes however early diverticulitis cannot be totally ruled out. I do agree with the assessment and plan. Patient does have an appointment to see Dr. Crespo tomorrow. (Sami Tolliver) Medical Decision Making - Lab Data Result diagrams: 09/01/18 13:45 09/01/18 13:45 <Delano Carpenter - Last Filed: 09/01/18 15:48> - Lab Data Result diagrams: 09/01/18 13:45 09/01/18 13:45 <Sami Tolliver - Last Filed: 09/01/18 15:55> - Medical Decision Making 73-year-old female presented for left-sided abdominal pain and back pain. Patient does have some dysuria but urinalysis unremarkable. Patient had CT which shows evidence of diverticulosis concern for early diverticulitis with elevated white count location of pain. Patient we treated with Cipro and Flagyl at this time. Patient will follow-up with her GI physician tomorrow at her scheduled appointment and return for any worsening symptoms. (Delano Carpenter) - Lab Data Lab Results 09/01/18 09/01/18 09/01/18 Range/Units 13:45 13:45 13:45 WBC 14.5 H (3.8-10.6) k/uL RBC 4.55 (3.80-5.40) m/uL Hgb 12.9 (11.4-16.0) gm/dL Hct 39.6 (34.0-46.0) % MCV 87.0 (80.0-100.0) fL MCH 28.3 (25.0-35.0) pg MCHC 32.6 (31.0-37.0) g/dL RDW 13.9 (11.5-15.5) % Plt Count 244 (150-450) k/uL Neutrophils % 73 % Lymphocytes % 19 % Monocytes % 5 % Eosinophils % 1 % Basophils % 0 % Neutrophils # 10.6 H (1.3-7.7) k/uL Lymphocytes # 2.8 (1.0-4.8) k/uL Monocytes # 0.8 (0-1.0) k/uL Eosinophils # 0.2 (0-0.7) k/uL Basophils # 0.0 (0-0.2) k/uL Sodium 142 (137-145) mmol/L Potassium 4.8 (3.5-5.1) mmol/L Chloride 105 (98-107) mmol/L Carbon Dioxide 29 (22-30) mmol/L Anion Gap 8 mmol/L BUN 17 (7-17) mg/dL Creatinine 0.91 (0.52-1.04) mg/dL Est GFR (CKD-EPI)AfAm 71 (>60 ml/min/1.73 sqM) Est GFR (CKD-EPI)NonAf 62 (>60 ml/min/1.73 sqM) Glucose 106 H (74-99) mg/dL Calcium 9.8 (8.4-10.2) mg/dL Total Bilirubin 0.6 (0.2-1.3) mg/dL AST 20 (14-36) U/L ALT 28 (9-52) U/L Alkaline Phosphatase 106 (38-126) U/L Total Protein 6.5 (6.3-8.2) g/dL Albumin 3.7 (3.5-5.0) g/dL Amylase 41 (30-110) U/L Lipase 73 (23-300) U/L Urine Color Light Yellow Urine Appearance Clear (Clear) Urine pH 7.5 (5.0-8.0) Ur Specific [place] 1.008 (1.001-1.035) Urine Protein Negative (Negative) Urine Glucose (UA) Negative (Negative) Urine Ketones Negative (Negative) Urine Blood Negative (Negative) Urine Nitrite Negative (Negative) Urine Bilirubin Negative (Negative) Urine Urobilinogen <2.0 (<2.0) mg/dL Ur Leukocyte Esterase Negative (Negative) Disposition Is patient prescribed a controlled substance at d/c from ED?: No Time of Disposition: 15:50 <Delano Carpenter - Last Filed: 09/01/18 15:48> <Sami Tolliver - Last Filed: 09/01/18 15:55> Clinical Impression: Abdominal pain, left lower quadrant, Diverticulosis Disposition: HOME SELF-CARE Condition: Stable Instructions: Diverticulitis (ED) Additional Instructions: Please return to the Emergency Department if symptoms worsen or any other concerns. Prescriptions: Ciprofloxacin HCl [Cipro] 500 mg PO Q12HR #14 tablet metroNIDAZOLE [Flagyl] 500 mg PO TID #24 tab Referrals: Fawad Ervin MD [Primary Care Provider] - 1-2 days
[2018-09-01 13:57] LABS: Appearance,Urine Clear (Clear); Basophils % (A) 0 %; Bilirubin,Urine Negative (Negative); Blood,Urine Negative (Negative); Color,Urine Light Yellow; Eosinophils # (A) 0.2 k/uL (0-0.7); Eosinophils % (A) 1 %; Glucose,Urine (UA) Negative (Negative); HCT 39.6 % (34.0-46.0); HGB 12.9 gm/dL (11.4-16.0); Ketones,Urine Negative (Negative); Leukocyte Esterase,Urine Negative (Negative); Lymphocytes # (A) 2.8 k/uL (1.0-4.8); Lymphocytes % (A) 19 %; MCH 28.3 pg (25.0-35.0); MCHC 32.6 g/dL (31.0-37.0); Mean Platelet Volume 7.9; Monocytes # (A) 0.8 k/uL (0-1.0); Monocytes % (A) 5 %; Neutrophils # (A) 10.6 k/uL (1.3-7.7); Neutrophils % (A) 73 %; Nitrite,Urine Negative (Negative); PH, Urine 7.5 (5.0-8.0); Platelet Count 244 k/uL (150-450); Protein,Urine Negative (Negative); RBC 4.55 m/uL (3.80-5.40); RDW 13.9 % (11.5-15.5); Specific Gravity,Urine 1.008 (1.001-1.035); Urobilinogen,Urine <2.0 mg/dL (<2.0); WBC 14.5 k/uL (3.8-10.6)
[2018-09-01 14:13] LABS: Albumin 3.7 g/dL (3.5-5.0); Calcium 9.8 mg/dL (8.4-10.2); Potassium 4.8 mmol/L (3.5-5.1); Total Bilirubin 0.6 mg/dL (0.2-1.3); Total Protein 6.5 g/dL (6.3-8.2)
--- NOTE | 2018-09-01 15:10 | CT ---
EXAMINATION TYPE: CT abdomen pelvis w con DATE OF EXAM: 09/01/2018 COMPARISON: 05/12/2017 HISTORY: Left sided abdominal pain CT DLP: 1942 mGycm Automated exposure control for dose reduction was used. TECHNIQUE: Helical acquisition of images was performed from the lung bases through the pelvis. CONTRAST: Performed without Oral Contrast and with IV Contrast, patient injected with 100 mL of Isovue 300. FINDINGS: Lung bases are clear. There is no pleural effusion. Liver spleen pancreas gallbladder appear normal. Bile ducts are not dilated. There are small hiatal hernia. Stomach is otherwise normal. There is no adrenal mass. The kidneys show satisfactory contrast opacification. There is no hydroneph rosis. There is 1 cm cortical cyst lateral left kidney. There is no retroperitoneal adenopathy. Abdom inal aorta is atheromatous. Ureters are not dilated. There is no mesenteric adenopathy or edema. Ther e are multiple sigmoid diverticula. There is no evidence of diverticulitis. There is no ascites. Blad millie distends smoothly. Uterus is anteverted. There is no free fluid in the pelvis. There is posterior fusion surgery in the lower lumbar spine. I see no compression fracture. There is no evidence of sudha e air. There is no inguinal hernia. There is right hip prosthesis. There is subcutaneous edema over t he lower lumbar spine. There is no sign of appendicitis. Appendix is not definitely seen. IMPRESSION: SIGMOID DIVERTICULOSIS WITHOUT DIVERTICULITIS. NO SIGN OF ACUTE ABDOMEN AND PELVIS. NO ADVERSE CHANGE COMPARED TO OLD EXAM.
[2018-09-01] MEDS ORDERED: ACET/COD 300 MG/30 MG STARTER PACK 6 TAB BTL PO STA (15:48)
[2018-09-01 16:11] VITALS: BP 178/83; PULSE 80
== END 2018-09-01 16:12 | disposition home or self-care (01) ==
LOC: EC 13:22 → SUPCPDRO 13:22 → EC 16:12
DX: K57.30 Diverticulosis of large intestine without perforation or abscess without bleeding (principal); I25.10 Atherosclerotic heart disease of native coronary artery without angina pectoris; I10 Essential (primary) hypertension; Z79.899 Other long term (current) drug therapy; Z88.8 Allergy status to other drugs, medicaments and biological substances; Z91.048 Other nonmedicinal substance allergy status; Z96.641 Presence of right artificial hip joint; Z96.653 Presence of artificial knee joint, bilateral; Z90.89 Acquired absence of other organs; Z95.5 Presence of coronary angioplasty implant and graft
CPT/HCPCS: 36415; 80053; 82150; 83690; 85025; 81003; 87086; 74177; 99284; 96360; Q9967; 87077; 87186

== ENCOUNTER → 2018-11-08 | Outpatient (CLI) | payer MEDICARE ==
--- NOTE | 2018-11-14 11:41 | MM ---
Reason for exam: screening (asymptomatic). Last mammogram was performed 1 year and 6 months ago. History: Patient is postmenopausal and history of other cancer. 4 benign excisional biopsies of the left breast. Physical Findings: A clinical breast exam by your physician is recommended on an annual basis and results should be correlated with mammographic findings. MG 3D Screening Mammo W/Cad Bilateral CC and MLO view(s) were taken. Prior study comparison: May 02, 2017, left breast MG 3d diag mammo w/cad LT. October 30, 2016, bilateral MG 3d screening mammo w/cad. There are scattered fibroglandular densities. Grouped round calcifications left upper outer quadrant slightly increased. These continue to show a benign morphology. No significant changes when compared with prior studies. ASSESSMENT: Benign, BI-RAD 2 RECOMMENDATION: Routine screening mammogram of both breasts in 1 year.
== END | disposition home or self-care (01) ==
LOC: RADMAMWWP 13:11
PROVIDERS: ATTEND Family Medicine
DX: Z12.31 Encounter for screening mammogram for malignant neoplasm of breast (principal)
CPT/HCPCS: 77063; 77067

== ENCOUNTER → 2020-11-02 | Outpatient (CLI) | payer MEDICARE ==
--- NOTE | 2020-11-03 11:21 | MM ---
Reason for exam: screening (asymptomatic). Last mammogram was performed 2 years ago. History: Patient is postmenopausal and history of other cancer. 4 benign excisional biopsies of the left breast. Physical Findings: A clinical breast exam by your physician is recommended on an annual basis and results should be correlated with mammographic findings. MG 3D Screening Mammo W/Cad Bilateral CC and MLO view(s) were taken. Prior study comparison: November 08, 2018, bilateral MG 3d screening mammo w/cad. May 02, 2017, left breast MG 3d diag mammo w/cad LT. There are scattered fibroglandular densities. No significant changes when compared with prior studies. ASSESSMENT: Benign, BI-RAD 2 RECOMMENDATION: Routine screening mammogram of both breasts in 1 year.
== END | disposition home or self-care (01) ==
LOC: RADMAMWWP 08:45
PROVIDERS: ATTEND Family Medicine
DX: Z12.31 Encounter for screening mammogram for malignant neoplasm of breast (principal)
CPT/HCPCS: 77063; 77067

== ENCOUNTER 2021-09-01 12:05 | Emergency (ER) | payer MEDICARE ==
[2021-09-01 12:19] VITALS: TEMP 98
[2021-09-01] MEDS ORDERED: KETOROLAC 15 MG/ML 1 ML VIAL IVP STA (12:43)
[2021-09-01] MEDS ORDERED: DIAZEPAM 5 MG/ML 2 ML INJ IVP STA (12:43)
--- NOTE | 2021-09-01 12:58 | ED ---
General Adult HPI - General Chief complaint: Chest Pain Stated complaint: side pain Time Seen by Provider: 09/01/21 12:15 Source: patient, RN notes reviewed, old records reviewed Mode of arrival: ambulatory Limitations: no limitations - History of Present Illness Initial comments: This is a 76-year-old female presents emergency Department complaining of right- sided flank pain. Patient states it hurts with movement or twisting or bending. Patient states she doesn't recall injuring it but it feels like a muscular injury. Patient denies any falls. Patient denies any abdominal pain patient denies nausea vomiting diarrhea. Patient denies any recent fever chills per patient denies any hematuria or dysuria. Patient does any history of kidney stones. Patient denies chest pain difficulty breathing or shortness of breath. Patient denies any lightheadedness or dizziness. - Related Data Home Medications Medication Instructions Recorded Confirmed Isosorbide Mononitrate [Isosorbide 30 mg PO DAILY 04/05/17 07/06/18 Mononitrate ER] Loratadine 10 mg PO DAILY 04/11/17 07/06/18 Losartan [Cozaar] 50 mg PO DAILY 04/11/17 07/06/18 Ranitidine HCl [Zantac] 300 mg PO BID 08/06/17 07/06/18 Previous Rx's Medication Instructions Recorded Aspirin EC [Ecotrin Low Dose] 81 mg PO DAILY #30 tablet. 06/18/14 Nitroglycerin Sl Tabs [Nitrostat] 0.4 mg SUBLINGUAL Q5M PRN #30 tab 06/18/14 atenoloL [Tenormin] 25 mg PO HS #30 tab 06/18/14 Clopidogrel [Plavix] 75 mg PO DAILY #90 tab 04/13/17 Atorvastatin [Lipitor] 40 mg PO HS #30 tab 08/08/17 Ciprofloxacin HCl [Cipro] 500 mg PO Q12HR #14 tablet 09/01/18 metroNIDAZOLE [Flagyl] 500 mg PO TID #24 tab 09/01/18 Cyclobenzaprine [Flexeril] 5 mg PO TID #15 tab 09/01/21 Ibuprofen [Motrin] 400 mg PO Q6HR PRN #28 tab 09/01/21 Allergies Allergy/AdvReac Type Severity Reaction Status Date / Time adhesive Allergy BLISTERS,PAPER Verified 09/01/21 12:16 TAPE OK diclofenac [From Pennsaid] Allergy Dyspnea Verified 09/01/21 12:16 lisinopril Allergy Cough Verified 09/01/21 12:16 Review of Systems ROS Statement: Those systems with pertinent positive or pertinent negative responses have been documented in the HPI. ROS Other: All systems not noted in ROS Statement are negative. Past Medical History Past Medical History: Coronary Artery Disease (CAD), GERD/Reflux, H yperlipidemia, Hypertension, Osteoarthritis (OA) Additional Past Medical History / Comment(s): HIATAL HERNIA, History of Any Multi-Drug Resistant Organisms: None Reported Past Surgical History: Adenoidectomy, Appendectomy, Back Surgery, Heart Catheterization With Stent, Joint Replacement, Tonsillectomy, Tubal Ligation, Uterine Ablation Additional Past Surgical History / Comment(s): FUSION, JAYASHREE KNEE REPLACEMENTS, JAYASHREE CATARACTS, RT HIP REPLACEMENT, STENT X4 Past Anesthesia/Blood Transfusion Reactions: No Reported Reaction Date of Last Stent Placement:: 07/2017 Past Psychological History: No Psychological Hx Reported Smoking Status: Never smoker Past Alcohol Use History: None Reported Past Drug Use History: None Reported - Past Family History Sister(s) Family Medical History: Cancer Additional Family Medical History / Comment(s): vaginal cancer Brother(s) Family Medical History: Cancer, Pulmonary Embolus General Exam - General Exam Comments Initial Comments: GENERAL: Patient is well-developed and well-nourished. Patient is nontoxic and well- hydrated and is in mild distress. ENT: Neck is soft and supple. No significant lymphadenopathy is noted. Oropharynx is clear. Moist mucous membranes. Neck has full range of motion without eliciting any pain. EYES: The sclera were anicteric and conjunctiva were pink and moist. Extraocular movements were intact and pupils were equal round and reactive to light. Eyelids were unremarkable. PULMONARY: Unlabored respirations. Good breath sounds bilaterally. No audible rales rhonchi or wheezing was noted. Pain is in the right flank in the lower ribs and is completely reproducible with palpation CARDIOVASCULAR: There is a regular rate and rhythm without any murmurs gallops or rubs. ABDOMEN: Soft and nontender with normal bowel sounds. SKIN: Skin is clear with no lesions or rashes and otherwise unremarkable. NEUROLOGIC: Patient is alert and oriented x3. Cranial nerves II through XII are grossly intact. Motor and sensory are also intact. Normal speech, volume and content. Symmetrical smile. MUSCULOSKELETAL: Normal extremities with adequate strength and full range of motion. LYMPHATICS: No significant lymphadenopathy is noted PSYCHIATRIC: Normal psychiatric evaluation. Limitations: no limitations Course Vital Signs 09/01/21 12:16 Temperature 98 F Pulse Rate 77 Respiratory 18 Rate Blood Pressure 161/75 O2 Sat by Pulse 94 L Oximetry Medical Decision Making - Medical Decision Making EKG shows normal sinus rhythm at 72 bpm MA interval 148 QRS 70 QT interval 380 QTC is 416. Patient's EKG shows no ST segment elevation or depression. Chest x-ray shows no acute abnormality. Patient received Toradol bit of time in the emergency department. Patient states she felt considerably better at this time she was comfortable going home. - Lab Data Result diagrams: 09/01/21 12:48 09/01/21 12:48 Lab Results 09/01/21 09/01/21 09/01/21 Range/Units 12:48 12:48 12:48 WBC 9.0 (3.8-10.6) k/uL RBC 4.56 (3.80-5.40) m/uL Hgb 13.2 (11.4-16.0) gm/dL Hct 39.7 (34.0-46.0) % MCV 87.1 (80.0-100.0) fL MCH 29.0 (25.0-35.0) pg MCHC 33.3 (31.0-37.0) g/dL RDW 13.8 (11.5-15.5) % Plt Count 192 (150-450) k/uL MPV 9.1 Neutrophils % 65 % Lymphocytes % 25 % Monocytes % 7 % Eosinophils % 1 % Basophils % 0 % Neutrophils # 5.8 (1.3-7.7) k/uL Lymphocytes # 2.3 (1.0-4.8) k/uL Monocytes # 0.7 (0-1.0) k/uL Eosinophils # 0.1 (0-0.7) k/uL Basophils # 0.0 (0-0.2) k/uL Sodium 138 (137-145) mmol/L Potassium 4.2 (3.5-5.1) mmol/L Chloride 105 (98-107) mmol/L Carbon Dioxide 26 (22-30) mmol/L Anion Gap 7 mmol/L BUN 18 H (7-17) mg/dL Creatinine 0.66 (0.52-1.04) mg/dL Est GFR (CKD-EPI)AfAm >90 (>60 ml/min/1.73 sqM) Est GFR (CKD-EPI)NonAf 85 (>60 ml/min/1.73 sqM) Glucose 171 H (74-99) mg/dL Calcium 9.5 (8.4-10.2) mg/dL Total Bilirubin 0.7 (0.2-1.3) mg/dL AST 21 (14-36) U/L ALT 18 (4-34) U/L Alkaline Phosphatase 86 (38-126) U/L Total Protein 6.6 (6.3-8.2) g/dL Albumin 3.7 (3.5-5.0) g/dL Urine Color Yellow Urine Appearance Clear (Clear) Urine pH 7.5 (5.0-8.0) Ur Specific [place] 1.017 (1.001-1.035) Urine Protein Negative (Negative) Urine Glucose (UA) Negative (Negative) Urine Ketones Negative (Negative) Urine Blood Negative (Negative) Urine Nitrite Negative (Negative) Urine Bilirubin Negative (Negative) Urine Urobilinogen <2.0 (<2.0) mg/dL Ur Leukocyte Esterase Trace H (Negative) Urine RBC 1 (0-5) /hpf Urine WBC 3 (0-5) /hpf Ur Squamous Epith Cells 2 (0-4) /hpf Disposition Clinical Impression: Chest wall pain Disposition: HOME SELF-CARE Condition: Good Instructions (If sedation given, give patient instructions): Chest Pain (ED), Chest Wall Pain (ED) Prescriptions: Cyclobenzaprine [Flexeril] 5 mg PO TID #15 tab Ibuprofen [Motrin] 400 mg PO Q6HR PRN #28 tab PRN Reason: Pain Is patient prescribed a controlled substance at d/c from ED?: No Referrals: Fawad Ervin MD [Primary Care Provider] - 1-2 days Time of Disposition: 15:34
[2021-09-01 13:02] LABS: Basophils % (A) 0 %; Eosinophils # (A) 0.1 k/uL (0-0.7); Eosinophils % (A) 1 %; HCT 39.7 % (34.0-46.0); HGB 13.2 gm/dL (11.4-16.0); Lymphocytes # (A) 2.3 k/uL (1.0-4.8); Lymphocytes % (A) 25 %; MCHC 33.3 g/dL (31.0-37.0); MCV 87.1 fL (80.0-100.0); Mean Platelet Volume 9.1; Monocytes # (A) 0.7 k/uL (0-1.0); Monocytes % (A) 7 %; Neutrophils # (A) 5.8 k/uL (1.3-7.7); Neutrophils % (A) 65 %; Platelet Count 192 k/uL (150-450); RBC 4.56 m/uL (3.80-5.40); RDW 13.8 % (11.5-15.5)
[2021-09-01 13:16] LABS: ALT 18 U/L (4-34); AST 21 U/L (14-36); African American GFR (CKD) >90 (>60 ml/min/1.73 sqM); Albumin 3.7 g/dL (3.5-5.0); Alkaline Phosphatase 86 U/L (38-126); Anion Gap 7 mmol/L; Blood Urea Nitrogen 18 mg/dL (7-17); Calcium 9.5 mg/dL (8.4-10.2); Carbon Dioxide 26 mmol/L (22-30); Chloride 105 mmol/L (98-107); Glucose 171 mg/dL (74-99); Non-African American GFR(CKD) 85 (>60 ml/min/1.73 sqM); Potassium 4.2 mmol/L (3.5-5.1); Sodium 138 mmol/L (137-145); Total Bilirubin 0.7 mg/dL (0.2-1.3); Total Protein 6.6 g/dL (6.3-8.2)
[2021-09-01] MEDS ORDERED: ONDANSETRON 4 MG/2 ML VIAL IVP STA (13:18)
--- NOTE | 2021-09-01 13:21 | XR ---
EXAMINATION TYPE: XR chest 2V DATE OF EXAM: 09/01/2021 COMPARISON: 06/16/2014 HISTORY: Shortness of breath TECHNIQUE: Frontal and lateral views of the chest are obtained. FINDINGS: Scattered senescent parenchymal changes noted. Hyperinflation compatible with COPD. No evidence for infiltrate. No evidence for atelectasis. Heart size is stable. Mediastinal structures are stable and grossly unremarkable. No evidence for hilar prominence. Degenerative changes dorsal spine. IMPRESSION: 1. No evidence for acute pulmonary disease.
[2021-09-01 14:54] LABS: Appearance,Urine Clear (Clear); Bilirubin,Urine Negative (Negative); Blood,Urine Negative (Negative); Color,Urine Yellow; Glucose,Urine (UA) Negative (Negative); Ketones,Urine Negative (Negative); Leukocyte Esterase,Urine Trace (Negative); Nitrite,Urine Negative (Negative); PH, Urine 7.5 (5.0-8.0); Protein,Urine Negative (Negative); RBC,Urine 1 /hpf (0-5); Specific Gravity,Urine 1.017 (1.001-1.035); Squamous Epithelial Cell,Urine 2 /hpf (0-4); Urobilinogen,Urine <2.0 mg/dL (<2.0); WBC,Urine 3 /hpf (0-5)
[2021-09-01] MEDS ORDERED: ACET/COD 300 MG/30 MG STARTER PACK 6 TAB BTL PO STA (15:36)
[2021-09-01 15:43] VITALS: BP 145/86; PULSE 81; RESP 17
[2021-09-01] MEDS ORDERED: ONDANSETRON 4 MG ODT STARTER PACK 2 TAB BTL PO STA (15:57)
== END 2021-09-01 15:50 | disposition home or self-care (01) ==
LOC: EC 12:05
DX: R07.89 Other chest pain (principal); I10 Essential (primary) hypertension; K21.9 Gastro-esophageal reflux disease without esophagitis; I25.10 Atherosclerotic heart disease of native coronary artery without angina pectoris; E78.5 Hyperlipidemia, unspecified; M19.90 Unspecified osteoarthritis, unspecified site; Z79.82 Long term (current) use of aspirin; Z79.899 Other long term (current) drug therapy; Z79.1 Long term (current) use of non-steroidal anti-inflammatories (NSAID)
CPT/HCPCS: 36415; 80053; 85025; 81001; 71046; 99285; 96374; 96375 ×2; J3360; J2405; J1885; S0119; 93005

== ENCOUNTER → 2022-09-07 | Outpatient (CLI) | payer MEDICARE ==
--- NOTE | 2022-09-08 09:59 | MM ---
Reason for Exam: Screening (asymptomatic). Last mammogram was performed 1 year(s) and 10 month(s) ago. Patient History: Menarche at age 11. First Full-Term at age 16. Postmenopausal. Other cancer. Benign Excisional Biopsy on the left side. Benign Excisional Biopsy on the left side. Benign Excisional Biopsy on the left side. Benign Excisional Biopsy on the left side. Risk Values: Marissa 5 year model risk: 1.8%. NCI Lifetime model risk: 3.1%. Prior Study Comparison: 05/02/2017 Left Diagnostic Mammogram, [facility]. 11/08/2018 Bilateral Screening Mammogram, [facility]. 11/02/2020 Bilateral Screening Mammogram, [facility]. Tissue Density: There are scattered fibroglandular densities. Findings: Analyzed By CAD. There is no suspicious group of microcalcifications or new suspicious mass in either breast. Scattered benign-appearing calcifications. Overall Assessment: Benign, BI-RAD 2 Management: Screening Mammogram of both breasts in 1 year. A clinical breast exam by your physician is recommended on an annual basis and results should be correlated with mammographic findings. [facility] will attempt to contact patient to return for supplemental views and ultrasound if indicated. Electronically signed and approved by: Sami Mcqueen DO
== END | disposition home or self-care (01) ==
LOC: RADMAMWWP 11:07
PROVIDERS: ATTEND Family Medicine
DX: Z12.31 Encounter for screening mammogram for malignant neoplasm of breast (principal); Z78.0 Asymptomatic menopausal state
CPT/HCPCS: 77063; 77067

== ENCOUNTER 2023-03-04 19:25 | Emergency (ER) | payer MEDICARE ==
[2023-03-04 19:36] VITALS: TEMP 98.1
--- NOTE | 2023-03-04 20:00 | ED ---
Chest Pain HPI - General Source: patient, family, RN notes reviewed Mode of arrival: ambulatory Limitations: no limitations - History of Present Illness MD Complaint: chest pain <Sami Tolliver - Last Filed: 03/04/23 20:53> <Thee Rossi - Last Filed: 03/04/23 22:25> - General Chief Complaint: Chest Pain Stated Complaint: CHEST PAIN Time Seen by Provider: 03/04/23 19:38 - History of Present Illness Initial Comments: 77-year-old female with a history of heart disease in the past who states she had the onset of sharp right side mid chest pain going on for the past 24 hours or radiates to her back she states is associated with shortness breath and comes on it is very severe and he comes in jabbing type cases lasting brief minutes. It increases movement with deep breathing but she denies any fevers chills nausea vomiting sweats no heavy lifting no trauma. She's never had pain quite like this before does not feel like any of the pain she had with her previous cardiac disease. She also denies any cough fevers chills sweats phlegm production. She points to the left midsternal region as the origin of the area and right upper chest radiating to the scapular area. (Sami Tolliver) - Related Data Home Medications Medication Instructions Recorded Confirmed Isosorbide Mononitrate [Isosorbide 60 mg PO DAILY 04/05/17 03/04/23 Mononitrate ER] Loratadine 10 mg PO DAILY 04/11/17 03/04/23 HYDROcodone/APAP 5-325MG [[place] 1 tab PO Q4HR PRN 03/04/23 03/04/23 5-325] Losartan Potassium 100 mg PO DAILY 03/04/23 03/04/23 Multivit-Min/Iron/Folic/Lutein 1 tab PO DAILY 03/04/23 03/04/23 [Centrum Silver Women Tablet] Omeprazole 20 mg PO DAILY 03/04/23 03/04/23 Oxybutynin Chloride [Oxybutynin 10 mg PO DAILY 03/04/23 03/04/23 Chloride ER] Pregabalin [Lyrica] 75 mg PO BID 03/04/23 03/04/23 atenoloL 100 mg PO HS 03/04/23 03/04/23 methocarbamoL [Methocarbamol] 750 mg PO TID PRN 03/04/23 03/04/23 Previous Rx's Medication Instructions Recorded Nitroglycerin Sl Tabs [Nitrostat] 0.4 mg SUBLINGUAL Q5M PRN #30 tab 06/18/14 Atorvastatin [Lipitor] 40 mg PO HS #30 tab 08/08/17 Allergies Allergy/AdvReac Type Severity Reaction Status Date / Time adhesive Allergy BLISTERS,PAPER Verified 03/04/23 22:06 TAPE OK diclofenac [From Pennsaid] Allergy Dyspnea Verified 03/04/23 22:06 lisinopril Allergy Cough Verified 03/04/23 22:06 Review of Systems ROS Other: All systems not noted in ROS Statement are negative. <Sami Tolliver - Last Filed: 03/04/23 20:53> ROS Other: All systems not noted in ROS Statement are negative. <Thee Rossi - Last Filed: 03/04/23 22:25> ROS Statement: Those systems with pertinent positive or pertinent negative responses have been documented in the HPI. EKG Findings - EKG Results: EKG: interpreted by ERMD (EKG interpreted by me shows evidence of a sinus rhythm of 65 with a marked amount of artifact QRS 7070 daily since QTC 368/380 low- voltage nonspecific ST configuration) <Sami Tolliver - Last Filed: 03/04/23 20:53> Past Medical History Past Medical History: Coronary Artery Disease (CAD), GERD/Reflux, Hyperlipidemi a, Hypertension, Osteoarthritis (OA) Additional Past Medical History / Comment(s): HIATAL HERNIA, History of Any Multi-Drug Resistant Organisms: None Reported Past Surgical History: Adenoidectomy, Appendectomy, Back Surgery, Heart Catheterization With Stent, Joint Replacement, Tonsillectomy, Tubal Ligation, Uterine Ablation Additional Past Surgical History / Comment(s): FUSION, JAYASHREE KNEE REPLACEMENTS, JAYASHREE CATARACTS, RT HIP REPLACEMENT, STENT X4 Past Anesthesia/Blood Transfusion Reactions: No Reported Reaction Date of Last Stent Placement:: 07/2017 Past Psychological History: No Psychological Hx Reported Smoking Status: Never smoker Past Alcohol Use History: None Reported Past Drug Use History: None Reported - Past Family History Sister(s) Family Medical History: Cancer Additional Family Medical History / Comment(s): vaginal cancer Brother(s) Family Medical History: Cancer, Pulmonary Embolus <Sami Tolliver - Last Filed: 03/04/23 20:53> General Exam Limitations: no limitations General appearance: alert, anxious Head exam: Present: atraumatic, normocephalic, normal inspection Eye exam: Present: normal appearance, PERRL, EOMI. Absent: scleral icterus, conjunctival injection, periorbital swelling ENT exam: Present: normal exam, mucous membranes moist Neck exam: Present: normal inspection, full ROM, other (No stridor JVD or bruits). Absent: tenderness, meningismus, lymphadenopathy Respiratory exam: Present: normal lung sounds bilaterally, chest wall tenderness (Palpation along the left costal sternal costochondral margin no step-off or crepitation this is on the right side.). Absent: respiratory distress, wheezes, rales, rhonchi, stridor Cardiovascular Exam: Present: regular rate, normal rhythm, normal heart sounds. Absent: systolic murmur, diastolic murmur, rubs, gallop, clicks GI/Abdominal exam: Present: soft, normal bowel sounds. Absent: distended, tenderness, guarding, rebound, rigid Extremities exam: Present: normal inspection, full ROM, normal capillary refill. Absent: tenderness, pedal edema, joint swelling, calf tenderness Back exam: Present: normal inspection, tenderness (Patient on the right paraspinous muscles and the infrascapular region as well as some tenderness over the rhomboid muscles no step-off no crepitation. No evidence of any rash.) Neurological exam: Present: alert, oriented X3, CN II-XII intact Psychiatric exam: Present: normal affect, normal mood Skin exam: Present: warm, dry, intact, normal color. Absent: rash <Sami Tolliver - Last Filed: 03/04/23 20:53> - General Exam Comments Initial Comments: This is a well-developed well-nourished awake alert oriented 4 female (Sami Tollivre) Course <Sami Tolliver - Last Filed: 03/04/23 20:53> Vital Signs 03/04/23 03/04/23 03/04/23 19:33 20:36 21:37 Temperature 98.1 F Pulse Rate 60 60 61 Respiratory 16 18 18 Rate Blood Pressure 184/80 154/67 152/66 O2 Sat by Pulse 98 93 L 94 L Oximetry - Reevaluation(s) Reevaluation #1: 03/04/23 20:52 The patient's care will be endorsed to Dr. Rossi at our shift change pending CT. Patient did get some relief from the IV fentanyl she is ALLERGIC to diclofenac slight did withhold use of Toradol (Sami Tolliver) Chest Pain MDM <UnrulySami - Last Filed: 03/04/23 20:53> <Thee Rossi - Last Filed: 03/04/23 22:25> - MDM I did interpret the chest x-ray negative for acute processes. (Sami Tolliver) The patient was signed out to me from Dr. Tolliver pending completion of the laboratory workup and imaging. Please see his note for HPI. Was pt. sent in by a medical professional or institution (, PA, [employer], urgent care, hospital, or retirement...) When possible be specific @ -No Did you speak to anyone other than the patient for history (EMS, parent, family, police, friend...)? What history was obtained from this source @ -No Did you review nursing and triage notes (agree or disagree)? Why? @ -I reviewed and agree with nursing and triage notes Were old charts reviewed (outside hosp., previous admission, EMS record, old EKG , old radiological studies, urgent care reports/EKG's, retirement records)? Report findings @ -No old charts were reviewed Differential Diagnosis (chest pain, altered mental status, abdominal pain women, abdominal pain men, vaginal bleeding, weakness, fever, dyspnea, syncope, headache, dizziness, GI bleed, back pain, seizure, CVA, palpatations, mental health)? @ -ACS, PE, pneumonia, muscle strain EKG interpreted by me (3pts min.). @ -As above X-rays interpreted by me (1pt min.). @ -Chest x-ray was obtained and was interpreted by myself showing no acute process. CT interpreted by me (1pt min.). @ -CTA of the chest was obtained and was interpreted by myself showing no evidence of pulmonary embolism or acute pulmonary process. U/S interpreted by me (1pt. min.). @ -None done What testing was considered but not performed or refused? (CT, X-rays, U/S, labs)? Why? @ -None What meds were considered but not given or refused? Why? @ -None Did you discuss the management of the patient with other professionals (professionals i.e. DrIain, PA, P[employer], lab, RT, psych nurse, social science analyst, last waxer, teacher, chief lending officer, caseworker intake)? Give summary @ -No Was smoking cessation discussed for >3mins.? @ -No Was critical care preformed (if so, how long)? @ -No Were there social determinants of health that impacted care today? How? (Homelessness, low income, unemployed, alcoholism, drug addiction, transportation, low edu. Level, literacy, decrease access to med. care, care home, rehab)? @ -No Was there de-escalation of care discussed even if they declined (Discuss DNR or withdrawal of care, Hospice)? DNR status @ -No What co-morbidities impacted this encounter? (DM, HTN, Smoking, COPD, CAD, Cancer, CVA, ARF, Chemo, Hep., AIDS, mental health diagnosis, sleep apnea, morbid obesity)? @ -Hypertension, previous cardiac stents Was patient admitted / discharged? Hospital course, mention meds given and route, prescriptions, significant lab abnormalities, going to OR and other pertinent info. @ -The patient was initially seen and evaluated by Dr. Tolliver. The patient was signed out to me pending completion the laboratory workup. All laboratory workup was negative and imaging was also negative. On reevaluation, the patient had improvement of her pain and did have minor reproducibility of pain and did state that it was reproducible and worse with movement. The patient likely had a chest muscle strain as a cause of her symptoms. The patient was deemed stable for discharge. The patient was advised to continue to monitor symptoms and if they became worse report back to the emergency department. The patient was agreeable to this and all her questions were answered. The patient was discharged home in stable condition. Undiagnosed new problem with uncertain prognosis? @ -No Drug Therapy requiring intensive monitoring for toxicity (Heparin, Nitro, Insulin, Cardizem)? @ -No Were any procedures done? @ -No Diagnosis/symptom? @ -Right chest wall muscle strain Acute, or Chronic, or Acute on Chronic? @ -Acute Uncomplicated (without systemic symptoms) or Complicated (systemic symptoms)? @ -Uncomplicated Side effects of treatment? @ -No Exacerbation, Progression, or Severe Exacerbation? @ -No Poses a threat to life or bodily function? How? (Chest pain, [place], [place], pneumonia, PE, COPD, DKA, ARF, appy, cholecystitis, CVA, Diverticulitis, Homicidal, Suicidal, threat to staff... and all critical care pts) @ -No (Thee Rossi) Disposition <Sami Tolliver - Last Filed: 03/04/23 20:53> Is patient prescribed a controlled substance at d/c from ED?: No Time of Disposition: 22:00 <Thee Rossi - Last Filed: 03/04/23 22:25> Clinical Impression: Chest wall muscle strain Disposition: HOME SELF-CARE Condition: Stable Instructions (If sedation given, give patient instructions): Chest Wall Pain (ED) Referrals: Fawad Ervin MD [Primary Care Provider] - 1-2 days
[2023-03-04 20:14] LABS: Basophils # (A) 0.1 k/uL (0-0.2); Basophils % (A) 0 %; Eosinophils # (A) 0.2 k/uL (0-0.7); Eosinophils % (A) 1 %; HCT 40.2 % (34.0-46.0); HGB 13.3 gm/dL (11.4-16.0); Lymphocytes # (A) 3.2 k/uL (1.0-4.8); Lymphocytes % (A) 27 %; MCH 28.8 pg (25.0-35.0); MCV 87.3 fL (80.0-100.0); Mean Platelet Volume 9.9; Monocytes # (A) 0.9 k/uL (0-1.0); Monocytes % (A) 8 %; Neutrophils # (A) 7.2 k/uL (1.3-7.7); Neutrophils % (A) 62 %; Platelet Count 198 k/uL (150-450); RBC 4.61 m/uL (3.80-5.40); RDW 14.3 % (11.5-15.5); WBC 11.7 k/uL (3.8-10.6)
[2023-03-04 20:23] LABS: Albumin 3.9 g/dL (3.5-5.0); Calcium 9.1 mg/dL (8.4-10.2); INR 0.9 (<1.2); Magnesium 1.7 mg/dL (1.6-2.3); Partial Thromboplastin Time 23.9 sec (22.0-30.0); Potassium 4.3 mmol/L (3.5-5.1); Prothrombin Time 9.7 sec (9.0-12.0); Total Bilirubin 0.5 mg/dL (0.2-1.3); Total Protein 6.9 g/dL (6.3-8.2)
[2023-03-04] MEDS ORDERED: fentaNYL (PF) 50 MCG/ML 2 ML AMP IVP STA (20:29)
--- NOTE | 2023-03-04 20:34 | XR ---
EXAMINATION TYPE: XR chest 2V DATE OF EXAM: 03/04/2023 8:15 PM COMPARISON: Chest x-ray 09/01/2021 TECHNIQUE: XR chest 2V . CLINICAL INDICATION:Female, 77 years old with history of Chest Pain; FINDINGS: Lungs/Pleura: Low lung volumes are present. There is no evidence of pleural effusion, focal consolida tion, or pneumothorax. Pulmonary vascularity: Unremarkable. Heart/mediastinum: Cardiomediastinal silhouette is unremarkable. Musculoskeletal: No acute osseous pathology. Degenerative changes of the acromioclavicular joints and thoracic spine bilaterally. IMPRESSION: No acute cardiopulmonary disease/process.
[2023-03-04 20:38] VITALS: RESP 18
--- NOTE | 2023-03-04 21:36 | CT ---
EXAMINATION TYPE: CT angio chest CT DLP: 863.1 mGycm, Automated exposure control for dose reduction was used. DATE OF EXAM: 03/04/2023 9:10 PM COMPARISON: Chest x-ray 03/04/2023 CLINICAL INDICATION:Female, 77 years old with history of PE suspected; pain, elevated d dimer TECHNIQUE/CONTRAST: CTA scan of the thorax is performed with IV Contrast, patient injected with 100ml mL of Isovue 370, p ulmonary embolism protocol. MIP images are created and reviewed. FINDINGS: Pulmonary Artery: There is no evidence for a filling defect within the pulmonary vasculature to sugge st acute pulmonary embolism. The pulmonary artery is of normal size. Lungs/Pleura: No evidence of focal consolidation, pleural effusion or pneumothorax. Multi focal subse gmental atelectasis. Airway: Large airways are patent. Heart: Heart is within normal limits for size.. Vasculature: Mild atherosclerotic calcifications are present throughout the aorta and its branches. Mediastinum: No gross evidence of adenopathy. Musculoskeletal: Mild degenerative disc disease changes are present throughout the thoracolumbar spin e. Soft Tissues: Unremarkable. Lower neck: No significant findings. Upper Abdomen: No significant findings. IMPRESSION: No evidence of pulmonary embolism or acute cardiopulmonary process.
[2023-03-04 21:40] VITALS: BP 152/66; PULSE 61
== END 2023-03-04 22:38 | disposition home or self-care (01) ==
LOC: EC 19:25
DX: S29.011A Strain of muscle and tendon of front wall of thorax, initial encounter (principal); I10 Essential (primary) hypertension; K21.9 Gastro-esophageal reflux disease without esophagitis; E78.5 Hyperlipidemia, unspecified; Z79.899 Other long term (current) drug therapy; M19.90 Unspecified osteoarthritis, unspecified site; Z91.09 Other allergy status, other than to drugs and biological substances; Z88.8 Allergy status to other drugs, medicaments and biological substances; Z88.6 Allergy status to analgesic agent; Z86.73 Personal history of transient ischemic attack (TIA), and cerebral infarction without residual deficits; X58.XXXA Exposure to other specified factors, initial encounter
CPT/HCPCS: 36415; 93005; 85379; 83880; 80053; 83690; 83735; 84484; 85025; 85610; 85730; 71046; 71275; 99285; 96374; J3010; Q9967

== ENCOUNTER 2023-07-29 06:39 | Emergency (ER) | payer MEDICARE ==
[2023-07-29] MEDS ORDERED: HYDROmorphone 1 MG/ML 1 ML SYRINGE IVP STA ×2 (06:46→09:21)
--- NOTE | 2023-07-29 06:54 | ED ---
Neck Injury/Pain HPI - General Chief Complaint: Neck Pain/Injury Stated Complaint: surgical pain Time Seen by Provider: 07/29/23 06:44 Source: patient, family, RN notes reviewed Mode of arrival: EMS Limitations: no limitations - History of Present Illness Initial Comments: This is an 78-year-old female who presents to the emergency department for neck pain. Patient had a C3-T1 fusion with Dr. Noriega 4 days ago. She had been recovering well without any problems, however at approximately 3 AM, she developed severe and increasing pain. The pain radiated into her shoulders and she felt like she couldn't move. She did however retain full sensation in the bilateral upper and lower extremities. She's been taking Doniphan and Robaxin for pain relief, which have been effective until she developed the increasing pain this morning. She is taking Doniphan 5mg q4h and Robaxin 750mg q8h. She has been wearing her neck brace as instructed. Denies any injuries. Also denies any fevers or chills. She was given 100 mcg of Fentanyl by EMS prior to arrival, which was not very helpful. Denies any fevers, chills, sore throat, cough, dyspnea, chest pain, palpitations, abdominal pain, nausea, vomiting, diarrhea, or headaches. MD Complaint: neck pain - Related Data Home Medications Medication Instructions Recorded Confirmed Isosorbide Mononitrate [Isosorbide 60 mg PO DAILY 04/05/17 03/04/23 Mononitrate ER] Loratadine 10 mg PO DAILY 04/11/17 03/04/23 HYDROcodone/APAP 5-325MG [Doniphan 1 tab PO Q4HR PRN 03/04/23 03/04/23 5-325] Losartan Potassium 100 mg PO DAILY 03/04/23 03/04/23 Multivit-Min/Iron/Folic/Lutein 1 tab PO DAILY 03/04/23 03/04/23 [Centrum Silver Women Tablet] Omeprazole 20 mg PO DAILY 03/04/23 03/04/23 Oxybutynin Chloride [Oxybutynin 10 mg PO DAILY 03/04/23 03/04/23 Chloride ER] Pregabalin [Lyrica] 75 mg PO BID 03/04/23 03/04/23 atenoloL 100 mg PO HS 03/04/23 03/04/23 methocarbamoL [Methocarbamol] 750 mg PO TID PRN 03/04/23 03/04/23 Previous Rx's Medication Instructions Recorded Nitroglycerin Sl Tabs [Nitrostat] 0.4 mg SUBLINGUAL Q5M PRN #30 tab 06/18/14 Atorvastatin [Lipitor] 40 mg PO HS #30 tab 08/08/17 Allergies Allergy/AdvReac Type Severity Reaction Status Date / Time adhesive Allergy BLISTERS,PAPER Verified 03/04/23 22:06 TAPE OK diclofenac [From Pennsaid] Allergy Dyspnea Verified 03/04/23 22:06 lisinopril Allergy Cough Verified 03/04/23 22:06 Review of Systems ROS Statement: Those systems with pertinent positive or pertinent negative responses have been documented in the HPI. ROS Other: All systems not noted in ROS Statement are negative. Past Medical History Past Medical History: Coronary Artery Disease (CAD), GERD/Reflux, Hyperlipidemia, Hypertension, Osteoarthritis (OA) Additional Past Medical History / Comment(s): HIATAL HERNIA, Cervical fusion History of Any Multi-Drug Resistant Organisms: None Reported Past Surgical History: Adenoidectomy, Appendectomy, Back Surgery, Heart Catheterization With Stent, Joint Replacement, Tonsillectomy, Tubal Ligation, Uterine Ablation Additional Past Surgical History / Comment(s): FUSION, JAYASHREE KNEE REPLACEMENTS, JAYASHREE CATARACTS, RT HIP REPLACEMENT, STENT X4 Past Anesthesia/Blood Transfusion Reactions: No Reported Reaction Date of Last Stent Placement:: 07/2017 Past Psychological History: No Psychological Hx Reported Smoking Status: Never smoker Past Alcohol Use History: None Reported Past Drug Use History: None Reported - Past Family History Sister(s) Family Medical History: Cancer Additional Family Medical History / Comment(s): vaginal cancer Brother(s) Family Medical History: Cancer, Pulmonary Embolus General Exam Limitations: no limitations General appearance: alert, in distress Head exam: Present: atraumatic, normocephalic, normal inspection Neck exam: Present: other (Surgical incision is bandaged with surrounding ecchymosis. No erythema, tenderness, or drainage.) Respiratory exam: Present: normal lung sounds bilaterally. Absent: respiratory distress, wheezes, rales, rhonchi, stridor Cardiovascular Exam: Present: regular rate, normal rhythm, normal heart sounds. Absent: systolic murmur, diastolic murmur, rubs, gallop, clicks Neurological exam: Present: alert, oriented X3, CN II-XII intact Expanded Neurological exam: Present: other (Multimedia Instructional Designer strength equal and intact bilaterally) Motor strength exam: RUE: 5, LUE: 5 Psychiatric exam: Present: normal affect, normal mood Skin exam: Present: warm, dry, intact, normal color. Absent: rash Course Vital Signs 07/29/23 07/29/23 06:43 09:38 Temperature 98.2 F Pulse Rate 77 80 Respiratory 19 18 Rate Blood Pressure 151/71 174/84 O2 Sat by Pulse 97 98 Oximetry Medical Decision Making - Medical Decision Making This is an 78-year-old female who presents to the emergency department for postoperative neck pain. Was pt. sent in by a medical professional or institution? @ -No Did you speak to anyone other than the patient for history? @ -EMS provided the majority of the information, with the patient reiterating what was said. Did you review nursing and triage notes? @ -Yes, and I agree, it is accurate with regards to the patient's symptoms. Were old charts reviewed? @ -No Differential Diagnosis? @ -Differential Neck Pain: Postop complication, postop pain, fracture, strain, this is not meant to be an all-inclusive list. EKG interpreted by me (3pts min.)? @ -Not obtained X-rays interpreted by me (1pt min.)? @ -Not obtained CT interpreted by me (1pt min.)? @ -Computed tomography scan of the cervical and thoracic spine obtained. My interpretation identifies no evidence of abnormal fluid collection. U/S interpreted by me (1pt. min.)? @ -Not obtained What testing was considered but not performed? (CT, X-rays, U/S, labs)? Why? @ -None What meds were considered but not given? Why? @ -None Did you discuss the management of the patient with other professionals? @ -Yes, her neurosurgeon Dr. Noriega. He advised that the patient was actuall y discharged home a day earlier than recommended per her request due to her fantastic progress. He advised a computed tomography scan of the area for evaluation of epidural hematoma or other postoperative complication. He advised that if we can get her pain under control, her pain medication dosing could be increased and she could be discharged home. I spoke with Did you reconcile home meds? @ -No Was smoking cessation discussed for >3mins.? @ -No Was critical care preformed (if so, how long)? @ -No Were there social determinants of health that impacted care today? How? (Homelessness, low income, unemployed, alcoholism, drug addiction, transportation, low edu. Level, literacy, decrease access to med. care, fdc, rehab)? @ -No Was there de-escalation of care discussed even if they declined? (Discuss DNR or withdrawal of care, Hospice)? @ -No What co-morbidities impacted this encounter? (DM, HTN, Smoking, COPD, CAD, Cancer, CVA, Hep., AIDS, mental health diagnosis, sleep apnea, morbid obesity)? @ -HTN, Osteoarthritis Was patient admitted / discharged? @ -We were contacted by the patient's neurosurgeon, Dr. Noriega shortly after she arrived in the emergency department. He advised a computed tomography scan for further evaluation, and if we were able to get her pain under control, she could likely be discharged home. However, if there were any irregular findings on the computed tomography scan or her symptoms were not controlled, she could be transferred to [facility] for further evaluation. We did obtain baseline lab work, revealing minor leukocytosis with a white blood cell count of 11.6 and a minor elevation in CRP at 3.7. Computed tomography scan of the cervical and thoracic spine obtained revealing no acute process. Patient was initially treated with Dilaudid and Norflex. This made her drowsy, but did not offer substantial relief to her pain. We did try to get the patient up so she could a mbulate, however her pain was too severe and she was unable to do so. She did maintain full sensation and had equal distribution designer strength despite the pain. I left a message for the health services information specialist surgery emergency line and was called back by Jerry with neurosurgery, calling on behalf of Dr. Noriega, and they requested transfer back to [facility]. Patient transferred to [facility] as an ED to ED transfer. Dr. Gomez is the accepting ED provider. Undiagnosed new problem with uncertain prognosis? @ -None Drug Therapy requiring intensive monitoring for toxicity (Heparin, Nitro, Insulin, Cardizem)? @ -None Were any procedures done? @ -None Diagnosis/symptom? @ -Postoperative neck pain Acute, or Chronic, or Acute on Chronic? @ -Acute Uncomplicated (without systemic symptoms) or Complicated (systemic symptoms)? @ -Uncomplicated Side effects of treatment? @ -None Exacerbation, Progression, or Severe Exacerbation] @ -Not applicable Poses a threat to life or bodily function? @ -Yes This case was discussed in detail with the attending ED physician, Dr. Newsome. Presentation, findings, and treatment plan discussed in detail as well. - Lab Data Result diagrams: 07/29/23 06:53 07/29/23 06:53 Lab Results 07/29/23 07/29/23 07/29/23 Range/Units 06:53 06:53 06:53 WBC 11.6 H (3.8-10.6) k/uL RBC 4.13 (3.80-5.40) m/uL Hgb 12.1 (11.4-16.0) gm/dL Hct 36.1 (34.0-46.0) % MCV 87.4 (80.0-100.0) fL MCH 29.3 (25.0-35.0) pg MCHC 33.6 (31.0-37.0) g/dL RDW 14.3 (11.5-15.5) % Plt Count 184 (150-450) k/uL MPV 9.7 Neutrophils % 56 % Lymphocytes % 30 % Monocytes % 10 % Eosinophils % 1 % Basophils % 0 % Neutrophils # 6.5 (1.3-7.7) k/uL Lymphocytes # 3.5 (1.0-4.8) k/uL Monocytes # 1.2 H (0-1.0) k/uL Eosinophils # 0.2 (0-0.7) k/uL Basophils # 0.0 (0-0.2) k/uL Sodium 134 L (137-145) mmol/L Potassium 4.5 (3.5-5.1) mmol/L Chloride 101 (98-107) mmol/L Carbon Dioxide 28 (22-30) mmol/L Anion Gap 5 mmol/L BUN 17 (7-17) mg/dL Creatinine 0.72 (0.52-1.04) mg/dL Est GFR (CKD-EPI)AfAm >90 (>60 ml/min/1.73 sqM) Est GFR (CKD-EPI)NonAf 80 (>60 ml/min/1.73 sqM) Glucose 156 H (74-99) mg/dL Plasma Lactic Acid Karsten 1.0 (0.7-2.0) mmol/L Calcium 8.9 (8.4-10.2) mg/dL Total Bilirubin 0.7 (0.2-1.3) mg/dL AST 31 (14-36) U/L ALT 26 (4-34) U/L Alkaline Phosphatase 96 (38-126) U/L C-Reactive Protein 3.7 H (<1.0) mg/dL Total Protein 6.1 L (6.3-8.2) g/dL Albumin 3.3 L (3.5-5.0) g/dL - Radiology Data Radiology results: report reviewed, image reviewed Disposition Clinical Impression: Postoperative pain after spinal surgery, S/P cervical spinal fusion Disposition: OTHER INSTITUTION NOT DEFINED Referrals: Fawad Ervin MD [Primary Care Provider] - 1-2 days - Out of Hospital Transfer - Req. Specs Out of Hospital Transfer - Requested Specifics: Other Emergency Center ([facility])
[2023-07-29 07:01] LABS: Basophils % (A) 0 %; Eosinophils # (A) 0.2 k/uL (0-0.7); Eosinophils % (A) 1 %; HCT 36.1 % (34.0-46.0); HGB 12.1 gm/dL (11.4-16.0); Lymphocytes # (A) 3.5 k/uL (1.0-4.8); Lymphocytes % (A) 30 %; MCH 29.3 pg (25.0-35.0); MCHC 33.6 g/dL (31.0-37.0); MCV 87.4 fL (80.0-100.0); Mean Platelet Volume 9.7; Monocytes # (A) 1.2 k/uL (0-1.0); Monocytes % (A) 10 %; Neutrophils # (A) 6.5 k/uL (1.3-7.7); Neutrophils % (A) 56 %; Platelet Count 184 k/uL (150-450); RBC 4.13 m/uL (3.80-5.40); RDW 14.3 % (11.5-15.5); WBC 11.6 k/uL (3.8-10.6)
[2023-07-29 07:16] LABS: ALT 26 U/L (4-34); AST 31 U/L (14-36); African American GFR (CKD) >90 (>60 ml/min/1.73 sqM); Albumin 3.3 g/dL (3.5-5.0); Alkaline Phosphatase 96 U/L (38-126); Anion Gap 5 mmol/L; Blood Urea Nitrogen 17 mg/dL (7-17); Calcium 8.9 mg/dL (8.4-10.2); Carbon Dioxide 28 mmol/L (22-30); Chloride 101 mmol/L (98-107); Glucose 156 mg/dL (74-99); Non-African American GFR(CKD) 80 (>60 ml/min/1.73 sqM); Potassium 4.5 mmol/L (3.5-5.1); Sodium 134 mmol/L (137-145); Total Bilirubin 0.7 mg/dL (0.2-1.3); Total Protein 6.1 g/dL (6.3-8.2)
[2023-07-29] MEDS ORDERED: ORPHENADRINE 30 MG/ML 2 ML VIAL IVP STA ×2 (07:16→12:16)
[2023-07-29 07:47] VITALS: TEMP 98.2
--- NOTE | 2023-07-29 07:53 | CT ---
EXAMINATION TYPE: CT CervThoracic spine wo con DATE OF EXAM: 07/29/2023 COMPARISON: None HISTORY: post op neck surgery, pain across shoulder blades CT DLP: 2353.[address] of the cervical spine and thoracic was performed with bone and soft tissue window setti ngs submitted. Coronal and sagittal reconstruction is obtained. Postoperative changes of the cervical laminectomy and fusion extending from C3-4 through C6-7. Pedicu lar screws are noted. Posterior skin staple line noted. Postoperative soft tissue changes seen. I do not see evidence for usual fluid collection. Postoperative alignment is felt to be near-anatomic. Karsten tral spondylosis seen. Thoracic spine demonstrates a multilevel [id number] degenerative disc di sease with ventral spondylosis. There is no evidence for fracture or malalignment. There is right upp er lobe linear atelectasis as well as mild atelectasis left medial lung base. IMPRESSION: 1. Postoperative changes of cervical laminectomy and fusion extending from C3-4 through C6-7 normal p ostoperative alignment and no unusual collection. Postsurgical soft tissue changes are evident. 3. Degenerative changes of the thoracic spine.
[2023-07-29 07:58] LABS: C Reactive Protein 3.7 mg/dL (<1.0)
[2023-07-29] MEDS ORDERED: SODIUM CHLORIDE 0.9% 1,000 ML IV STA (09:21)
[2023-07-29 09:57] VITALS: RESP 18
[2023-07-29] MEDS ORDERED: LIDOCAINE 5% PATCH TOPICAL ONE (10:02)
[2023-07-29 13:00] VITALS: BP 188/89; PULSE 78
== END 2023-07-29 12:52 | disposition other institution (70) ==
LOC: EC 06:39
DX: G89.18 Other acute postprocedural pain (principal); M43.22 Fusion of spine, cervical region; I10 Essential (primary) hypertension; I25.10 Atherosclerotic heart disease of native coronary artery without angina pectoris; K21.9 Gastro-esophageal reflux disease without esophagitis; E78.5 Hyperlipidemia, unspecified; Z79.899 Other long term (current) drug therapy; Z88.8 Allergy status to other drugs, medicaments and biological substances
CPT/HCPCS: 36415; 80053; 83605; 85025; 86140; 72128; 72125; 99285; 96374; 96375; 96376 ×2; 96361; 51702; J2360; J1170

== ENCOUNTER → 2024-09-16 | Outpatient (CLI) | payer MEDICARE ==
--- NOTE | 2024-09-17 14:45 | MM ---
Reason for Exam: Screening (asymptomatic). Last mammogram was performed 2 year(s) and 1 month(s) ago. Patient History: Menarche at age 11. First Full-Term at age 16. Postmenopausal. Other cancer. Estrogen for 1 year from age 56 until age 57. Benign Excisional Biopsy on the left side. Benign Excisional Biopsy on the left side. Benign Excisional Biopsy on the left side. Benign Excisional Biopsy on the left side. Risk Values: Marissa 5 year model risk: 1.8%. NCI Lifetime model risk: 2.5%. Prior Study Comparison: 11/08/2018 Bilateral Screening Mammogram, [facility]. 11/02/2020 Bilateral Screening Mammogram, [facility]. 09/07/2022 Bilateral MG 3D screening mammo w/cad, [facility]. Tissue Density: The breasts are heterogeneously dense, which may obscure small masses. Findings: Analyzed By CAD. Increasing grouped calcifications in the upper outer quadrant left breast. Spot magnification views recommended. Stable benign appearing lymph nodes in the axilla. No dominant mass. Overall Assessment: Incomplete: need additional imaging evaluation, BI-RAD 0 Management: Diagnostic Mammogram of the left breast. . Patient should continue monthly self-breast exams. A clinical breast exam by your physician is recommended on an annual basis. This exam should not preclude additional follow-up of suspicious palpable abnormalities. Note on Amrissa scores and lifetime risk: 1. A Marissa score greater than 3% is considered moderate risk. If this is the case, consider specialist referral to assess eligibility for a risk reducing agent. 2. If overall lifetime risk for the development of breast cancer is 20% or higher, the patient may qualify for future screening with alternating mammogram and breast MRI. [facility], , 09/17/2024 2:41 PM. Electronically signed and approved by: Wallace Cardoso M.D. Radiologis
== END | disposition home or self-care (01) ==
LOC: RADMAMWWP 12:28
PROVIDERS: ATTEND Family Medicine
DX: Z12.31 Encounter for screening mammogram for malignant neoplasm of breast (principal); R92.333 Mammographic heterogeneous density, bilateral breasts; Z78.0 Asymptomatic menopausal state
CPT/HCPCS: 77063; 77067

== ENCOUNTER → 2024-09-19 | Outpatient (CLI) | payer MEDICARE ==
--- NOTE | 2024-09-19 13:53 | MM ---
Reason for Exam: Additional evaluation requested from abnormal screening. Last screening mammogram was performed less than 1 month ago. Patient History: Menarche at age 11. First Full-Term at age 16. Postmenopausal. Other cancer. Estrogen for 1 year from age 56 until age 57. Benign Excisional Biopsy on the left side. Benign Excisional Biopsy on the left side. Benign Excisional Biopsy on the left side. Benign Excisional Biopsy on the left side. Risk Values: Marissa 5 year model risk: 1.8%. NCI Lifetime model risk: 2.5%. Prior Study Comparison: 11/02/2020 Bilateral Screening Mammogram, [facility]. 09/07/2022 Bilateral MG 3D screening mammo w/cad, [facility]. 09/16/2024 Bilateral MG 3D screening mammo w/cad, [facility]. Tissue Density: Left: There are scattered areas of fibroglandular density. Findings: Analyzed By CAD. The pattern is stable A some stable coarse calcifications in the upper outer mid posterior left breast. No significant interval changes. Overall Assessment: Benign, BI-RAD 2 Management: Screening Mammogram of both breasts in 1 year. A negative mammogram report should not preclude additional follow up of suspicious palpable abnormalities. Patient should continue monthly self breast exam. A clinical breast exam by your physician is recommended on an annual basis and results should be correlated with mammographic findings. Note on Marissa scores and lifetime risk: 1. A Marissa score greater than 3% is considered moderate risk. If this is the case, consider specialist referral to assess eligibility for a risk reducing agent. 2. If overall lifetime risk for the development of breast cancer is 20% or higher, the patient may qualify for future screening with alternating mammogram and breast MRI. [facility], , 09/19/2024 1:22 PM. Electronically signed and approved by: Julio Cleaning D.O. Radiologis
== END | disposition home or self-care (01) ==
LOC: RADMAMWWP 12:49
PROVIDERS: ATTEND Family Medicine
DX: R92.8 Other abnormal and inconclusive findings on diagnostic imaging of breast (principal); R92.323 Mammographic fibroglandular density, bilateral breasts; Z78.0 Asymptomatic menopausal state
CPT/HCPCS: 77065; G0279; 77061

== ENCOUNTER 2024-10-08 15:51 | Emergency (ER) | payer MEDICARE ==
--- NOTE | 2024-10-08 16:38 | ED ---
Recheck HPI - General Chief Complaint: Recheck/Abnormal Lab/Rx Stated Complaint: R ankle issue Time Seen by Provider: 10/08/24 16:05 Source: patient, RN notes reviewed Mode of arrival: ambulatory Limitations: no limitations - History of Present Illness Initial Comments: This is an 79-year-old female with history of CAD and hypertension presenting for right ankle drainage/weeping x 3 hours. Patient states she recently stopped taking her p.o. Lasix 20 mg daily prescribed by Dr[address] Crow after experiencing urinary incontinence and inconvenience of polyuria. States that since then her bilateral lower extremities have been swelling more than usual with her recently noticing her right sock was damp. Patient denies recent injury, open wound, numbness, color change of affected foot. Denies fever, chills, chest pain, dyspnea, abdominal pain, dizziness, N/V/D. - Related Data Home Medications Medication Instructions Recorded Confirmed Isosorbide Mononitrate [Isosorbide 60 mg PO DAILY 04/05/17 03/04/23 Mononitrate ER] Loratadine 10 mg PO DAILY 04/11/17 03/04/23 HYDROcodone/APAP 5-325MG [[place] 1 tab PO Q4HR PRN 03/04/23 03/04/23 5-325] Losartan Potassium 100 mg PO DAILY 03/04/23 03/04/23 Multivit-Min/Iron/Folic/Lutein 1 tab PO DAILY 03/04/23 03/04/23 [Centrum Silver Women Tablet] Omeprazole 20 mg PO DAILY 03/04/23 03/04/23 Oxybutynin Chloride [Oxybutynin 10 mg PO DAILY 03/04/23 03/04/23 Chloride ER] Pregabalin [Lyrica] 75 mg PO BID 03/04/23 03/04/23 atenoloL 100 mg PO HS 03/04/23 03/04/23 methocarbamoL [Methocarbamol] 750 mg PO TID PRN 03/04/23 03/04/23 Previous Rx's Medication Instructions Recorded Nitroglycerin Sl Tabs [Nitrostat] 0.4 mg SUBLINGUAL Q5M PRN #30 tab 06/18/14 Atorvastatin [Lipitor] 40 mg PO HS #30 tab 08/08/17 Allergies Allergy/AdvReac Type Severity Reaction Status Date / Time adhesive Allergy BLISTERS,PAPER Verified 10/08/24 16:10 TAPE OK diclofenac [From Pen[place]aid] Allergy Dyspnea Verified 10/08/24 16:10 lisinopril Allergy Cough Verified 10/08/24 16:10 Review of Systems ROS Statement: Those systems with pertinent positive or pertinent negative responses have been documented in the HPI. ROS Other: All systems not noted in ROS Statement are negative. Past Medical History Past Medical History: Coronary Artery Disease (CAD), GERD/Reflux, Hyperlipidem ia, Hypertension, Osteoarthritis (OA) Additional Past Medical History / Comment(s): HIATAL HERNIA, Cervical fusion History of Any Multi-Drug Resistant Organisms: None Reported Past Surgical History: Adenoidectomy, Appendectomy, Back Surgery, Heart Catheterization With Stent, Joint Replacement, Tonsillectomy, Tubal Ligation, Uterine Ablation Additional Past Surgical History / Comment(s): FUSION, JAYASHREE KNEE REPLACEMENTS, JAYASHREE CATARACTS, RT HIP REPLACEMENT, STENT X4 Past Anesthesia/Blood Transfusion Reactions: No Reported Reaction Date of Last Stent Placement:: 07/2017 Past Psychological History: No Psychological Hx Reported Smoking Status: Never smoker Past Alcohol Use History: None Reported Past Drug Use History: None Reported - Past Family History Sister(s) Family Medical History: Cancer Additional Family Medical History / Comment(s): vaginal cancer Brother(s) Family Medical History: Cancer, Pulmonary Embolus General Exam Limitations: no limitations General appearance: alert, in no apparent distress Head exam: Present: atraumatic, normocephalic, normal inspection Eye exam: Present: normal appearance, PERRL, EOMI. Absent: scleral icterus, conjunctival injection, periorbital swelling ENT exam: Present: normal exam, mucous membranes moist Neck exam: Present: normal inspection. Absent: tenderness, meningismus, lymphadenopathy Respiratory exam: Present: normal lung sounds bilaterally. Absent: respiratory distress, wheezes, rales, rhonchi, stridor Cardiovascular Exam: Present: regular rate, normal rhythm, normal heart sounds. Absent: systolic murmur, diastolic murmur, rubs, gallop, clicks GI/Abdominal exam: Present: soft, normal bowel sounds. Absent: distended, tenderness, guarding, rebound, rigid Extremities exam: Present: full ROM, normal capillary refill, pedal edema (Bilateral pitting pedal edema with some moisture/weeping noted around right ankle. Negative stasis dermatitis, erythema, warmth, open wound.), other (BLE neurovascular and motor function intact. Bilateral posterior tibialis and dorsalis pedis pulse +2.). Absent: tenderness, joint swelling, calf tenderness Back exam: Present: normal inspection Neurological exam: Present: alert, oriented X3, CN II-XII intact Psychiatric exam: Present: normal affect, normal mood Skin exam: Present: warm, dry, intact, normal color. Absent: rash Course Vital Signs 10/08/24 10/08/24 16:06 17:37 Temperature 98.5 F 98.2 F Pulse Rate 68 64 Respiratory 20 18 Rate Blood Pressure 168/62 146/67 O2 Sat by Pulse 97 92 L Oximetry Medical Decision Making - Medical Decision Making Was pt. sent in by a medical professional or institution (CRICKET Malik, REGISTRATION OFFICER, urgent care, hospital, or skilled nursing...) When possible be specific @ -No Did you speak to anyone other than the patient for history (EMS, parent, family, police, friend...)? What history was obtained from this source @ -No Did you review nursing and triage notes (agree or disagree)? Why? @ -I reviewed and agree with nursing and triage notes Were old charts reviewed (outside hosp., previous admission, EMS record, old EKG, old radiological studies, urgent care reports/EKG's, skilled nursing records)? Report findings @ -No old charts were reviewed Differential Diagnosis (chest pain, altered mental status, abdominal pain women, abdominal pain men, vaginal bleeding, weakness, fever, dyspnea, syncope, headache, dizziness, GI bleed, back pain, seizure, CVA, palpatations, mental health, musculoskeletal)? @ -Pedal edema, DVT, lymphedema, compression syndrome, cellulitis, this is not an exhaustive list EKG interpreted by me (3pts min.). @ -Not done X-rays interpreted by me (1pt min.). @ -None done CT interpreted by me (1pt min.). @ -None done U/S interpreted by me (1pt. min.). @ -None done What testing was considered but not performed or refused? (CT, X-rays, U/S, labs)? Why? @ -None What meds were considered but not given or refused? Why? @ -None Did you discuss the management of the patient with other professionals (professionals i.e. , PA, REGISTRATION OFFICER, lab, RT, psych nurse, social worker palliative care, academic manager, teacher, police officer booking, case management specialist)? Give summary @ -No Was smoking cessation discussed for >3mins.? @ -No Was critical care preformed (if so, how long)? @ -No Were there social determinants of health that impacted care today? How? (Homelessness, low income, unemployed, alcoholism, drug addiction, transporta tion, low edu. Level, literacy, decrease access to med. care, [place] [facility], rehab)? @ -No Was there de-escalation of care discussed even if they declined (Discuss DNR or withdrawal of care, Hospice)? DNR status @ -No What co-morbidities impacted this encounter? (DM, HTN, Smoking, COPD, CAD, Cancer, CVA, ARF, Chemo, Hep., AIDS, mental health diagnosis, sleep apnea, morbid obesity)? @ -CAD, hypertension Was patient admitted / discharged? Hospital course, mention meds given and route, prescriptions, significant lab abnormalities, going to OR and other pertinent info. @ -Patient provided p.o. furosemide 40 mg. Advised to continue previously prescribed furosemide 20 mg daily. Advised compression stocking during the day and leg elevation when resting. Vies follow-up with Dr. Crespo if edema/weeping persist. Undiagnosed new problem with uncertain prognosis? @ -No Drug Therapy requiring intensive monitoring for toxicity (Heparin, Nitro, Insulin, Cardizem)? @ -No Were any procedures done? @ -No Diagnosis/symptom? @ -Bilateral pedal edema with new weeping of RLE Acute, or Chronic, or Acute on Chronic? @ -Acute Uncomplicated (without systemic symptoms) or Complicated (systemic symptoms)? @ -Uncomplicated Side effects of treatment? @ -No Exacerbation, Progression, or Severe Exacerbation? @ -Exacerbation Poses a threat to life or bodily function? How? (Chest pain, [place], [place], pneumonia, PE, COPD, DKA, ARF, appy, cholecystitis, CVA, Diverticulitis, Homicidal, Suicidal, threat to staff... and all critical care pts) @ -No Disposition Clinical Impression: Pedal edema Disposition: HOME SELF-CARE Condition: Good Instructions (If sedation given, give patient instructions): Leg Edema (ED) Is patient prescribed a controlled substance at d/c from ED?: No Referrals: Fawad Ervin MD [Primary Care Provider] - 1-2 days Time of Disposition: 16:38
[2024-10-08] MEDS: FUROSEMIDE 40 MG TAB PO STA (17:30)
[2024-10-08 17:47] VITALS: BP 146/67; PULSE 64; RESP 18; TEMP 98.2
== END 2024-10-08 18:00 | disposition home or self-care (01) ==
LOC: EC 15:51
DX: R60.0 Localized edema (principal); I11.9 Hypertensive heart disease without heart failure; I25.10 Atherosclerotic heart disease of native coronary artery without angina pectoris; Z91.048 Other nonmedicinal substance allergy status; Z88.8 Allergy status to other drugs, medicaments and biological substances
CPT/HCPCS: 99283